=== PATIENT | female | born 1980 | race Caucasian/White ===

== ENCOUNTER 2020-02-25 14:41 | Outpatient (REF) | payer OTHER, SELFPAY ==
[2020-02-25 17:20] LABS: COVID-19 Test Negative (Negative)
== END 2020-02-25 14:42 | disposition home or self-care (01) ==
LOC: HO.LAB 14:41
PROVIDERS: PCP Internal Medicine; Visit Provider Internal Medicine
DX: Z20.828 Contact with and (suspected) exposure to other viral communicable diseases (principal)
CPT/HCPCS: 87635

== ENCOUNTER → 2020-03-09 11:04 | Outpatient (BNVA) | payer OTHER, SELFPAY | PROVIDERS: PCP Internal Medicine; Referring Provider Internal Medicine; Visit Provider Obstetrics & Gynecology | DX: Z76.89 Persons encountering health services in other specified circumstances (principal) ==

== ENCOUNTER → 2020-05-11 13:59 | Outpatient (BNVA) | payer OTHER, SELFPAY | PROVIDERS: PCP Internal Medicine; Visit Provider Urology | DX: Z76.89 Persons encountering health services in other specified circumstances (principal) ==

== ENCOUNTER 2020-05-24 15:35 | Outpatient (REF) | payer OTHER, SELFPAY | END 2020-05-24 15:36 | disposition home or self-care (01) | LOC: HO.LNP 15:35 | PROVIDERS: Visit Provider Obstetrics & Gynecology | DX: N90.89 Other specified noninflammatory disorders of vulva and perineum (principal) | CPT/HCPCS: 56605; 88305 ==

== ENCOUNTER 2020-05-31 08:12 | Outpatient (REF) | payer OTHER, SELFPAY ==
--- NOTE | 2020-05-31 08:16 | MM_ITS ---
EXAMINATION: MM SCREENING DIGITAL BREAST TOMOSYNTHESIS, BILATERAL CLINICAL INFORMATION: Screening. Asymptomatic. No prior breast imaging. Age 40. No known family history breast cancer. The lifetime risk of breast cancer based on the Tyrer-Cuzick Model is 9%. COMPARISON: None (current study represents initial baseline exam). TECHNIQUE: Digital breast tomosynthesis is performed in both the craniocaudal and mediolateral oblique views along with computer-aided detection (CAD). Synthesized 2D images are generated from the tomosynthesis. FINDINGS: There are scattered areas of fibroglandular density (ACR BI-RADS breast composition Category b). There are no significant masses, abnormal calcifications, or other abnormalities. The axilla and skin contours are unremarkable. MM/MM tomosynthesis screening BI IMPRESSION: No mammographic evidence of malignancy. ASSESSMENT: BI-RADS 1: Negative RECOMMENDATION: Routine annual mammography screening. This patient's information was entered into a reminder system with a target due date for their next mammogram.
== END 2020-05-31 08:13 | disposition home or self-care (01) ==
LOC: HO.MAMMO 08:12
PROVIDERS: PCP Internal Medicine; Visit Provider Obstetrics & Gynecology
DX: Z12.31 Encounter for screening mammogram for malignant neoplasm of breast (principal)
CPT/HCPCS: 77063; 77067

== ENCOUNTER → 2020-06-07 11:32 | Outpatient (BNVA) | payer OTHER, SELFPAY | PROVIDERS: Visit Provider Obstetrics & Gynecology ==

== ENCOUNTER → 2020-11-07 08:58 | Outpatient (BNVA) | payer OTHER, SELFPAY | PROVIDERS: PCP Internal Medicine; Visit Provider Urology | DX: N39.46 Mixed incontinence (principal) | CPT/HCPCS: 52000 ==

== ENCOUNTER 2021-01-05 10:51 | Outpatient (REF) | payer OTHER, SELFPAY ==
[2021-01-05 11:12] LABS: COVID-19 Test Negative (Negative)
== END 2021-01-05 10:52 | disposition home or self-care (01) ==
LOC: HO.LAB 10:51
PROVIDERS: Visit Provider Internal Medicine
DX: Z20.822 Contact with and (suspected) exposure to COVID-19 (principal)
CPT/HCPCS: 36415; 87635; C9803

== ENCOUNTER 2021-01-17 12:29 | Outpatient (REF) | payer OTHER, SELFPAY ==
[2021-01-17 13:20] LABS: COVID-19 Test Negative (Negative)
== END 2021-01-17 12:30 | disposition home or self-care (01) ==
LOC: HO.LAB 12:29
PROVIDERS: Visit Provider Internal Medicine
DX: Z20.822 Contact with and (suspected) exposure to COVID-19 (principal)
CPT/HCPCS: 36415; 87635; C9803

== ENCOUNTER 2021-04-06 11:00 | Outpatient (RCR) | payer OTHER, SELFPAY ==
--- NOTE | 2021-03-23 11:39 | MHC.PT.EP ---
[facility] [place] Office [place] Office [place] Office [address] Ely Colon [address] [phone] F: [phone] F: [phone] F: [phone] F: [phone] Physical Therapy Plan of Care Date of Evaluation: 03/23/2021 Date of Surgery: Diagnosis: mixed incontinence Assessment: The patient arrived with symptoms of urge and stress urinary incontinence. She demonstrated weakness, poor coordination, and poor endurance in her pelvic floor. She has been wearing an abdominal binder/shaper which I question may be contributing to incontinence due to increased intra abdominal pressure. The patient is an excellent candidate for skilled Pelvic floor Physical therapy. The patient will need behavior modification and education on diet and lifestyle changes to improve her current urinary function. Frequency and Duration: The patient will be seen 1x/week x 8 weeks Short Term Goals: 1. Pt to be able to demonstrate diaphragmatic breathing to improve pressure exchange and intra abdominal load management. 2. Pt to be educated on bladder irritants in order to decrease UI triggers 3. Pt to complete a voiding log in order to accurately assess her bladder habits 4. Pt to be educated on behavior training to help decrease urge incontinence. Detention Goals: 1. Pt to be able to show improved PFM contraction during functional movements such as a bridge or squat to help prevent or limit POP. 2. Pt to reduce # of episodes of SIERRA during the day by 50% to help improve quality of life and reduce pad usage. 3. Pt to be independent with her final HEP for PFM in order to help maintain gains made in therapy. Treatment Plan: Modalities to reduce pain, spasms and effusion. Manual therapy to restore motion and function. Therapeutic exercise to improve strength and flexibility. Neuromuscular re-education for posture and balance. Therapeutic activities to return to functional activities of daily living. Electronically signed by: Please sign and return to therapist. Thank you for your referral.
== END 2021-07-03 13:52 | disposition home or self-care (01) ==
LOC: HO.PT 11:00
PROVIDERS: PCP Student in an Organized Health Care Education/Training Program; Visit Provider Urology
DX: N39.46 Mixed incontinence (principal)
CPT/HCPCS: 97110; 97112; 97162; 97530

== ENCOUNTER → 2021-06-12 15:03 | Outpatient (BNVA) | payer OTHER, SELFPAY | PROVIDERS: PCP Internal Medicine; Visit Provider Urology ==

== ENCOUNTER 2021-07-11 08:56 | Outpatient (REF) | payer OTHER, SELFPAY ==
[2021-07-11 09:12] LABS: MANUAL DIFF FLAG NO
[2021-07-11 09:16] LABS: Basophils Percent Auto 0.7 % (0-2); Eosinophils Absolute Auto 0.1 X10*3/uL (0.0-0.4); Eosinophils Percent Auto 2.3 % (0-4); Hematocrit 39.7 % (37.0-47.0); Hemoglobin 13.5 g/dl (12.0-16.0); Lymphocytes Absolute Auto 1.3 X10*3/uL (1.2-4.9); Lymphocytes Percent Auto 43.8 % (20-40); Mean Corpuscular Hemoglobin 30.5 pg (27.0-33.0); Mean Corpuscular Volume 89.6 fL (80.0-98.0); Mean Platelet Volume 10.6 fL (9.4-12.3); Monocytes Absolute Auto 0.4 X10*3/uL (0.1-1.2); Monocytes Percent Auto 11.7 % (2-11); Neutrophils Absolute Auto 1.2 x10*3/uL (2.0-8.3); Neutrophils Percent Auto 41.5 % (45-73); Platelet Count 212 X10*3/uL (160-400); Red Blood Count 4.43 X10*6/uL (4.20-5.50); Red Cell Distribution Width 12.6 % (11.0-16.0)
[2021-07-11 10:01] LABS: Alanine Aminotransferase 16 U/L (0-31); Albumin Level 4.4 g/dL (3.5-5.0); Alkaline Phosphatase 48 U/L (39-117); Anion Gap 10 (12-20); Aspartate Amino Transferase 14 U/L (5-31); Blood Urea Nitrogen 11 mg/dL (9-16); Calcium 9.8 mg/dL (8.4-10.2); Carbon Dioxide 27 mmol/L (22-29); Chloride 106 mmol/L (96-108); Cholesterol 115 mg/dL; Estimated Glomerular Filt Rate > 60; Glucose Fasting 96 mg/dL (60-99); HDL Cholesterol 42 mg/dL; LDL Cholesterol Calculated 63 mg/dl; Potassium 4.2 mmol/L (3.3-5.1); Sodium 139 mmol/L (135-145); Total Protein 6.9 g/dL (6.5-8.0); Triglycerides 52 mg/dL
== END 2021-07-11 08:57 | disposition home or self-care (01) ==
LOC: HO.LAB 08:56
PROVIDERS: PCP Internal Medicine; Visit Provider Internal Medicine
DX: Z00.00 Encounter for general adult medical examination without abnormal findings (principal); D64.9 Anemia, unspecified; D72.819 Decreased white blood cell count, unspecified; E55.9 Vitamin D deficiency, unspecified
CPT/HCPCS: 36415; 80053; 80061; 82306; 85025

== ENCOUNTER → 2021-08-01 08:28 | Outpatient (BNVA) | payer OTHER, SELFPAY | PROVIDERS: PCP Internal Medicine; Visit Provider Internal Medicine Rheumatology | DX: Z13.89 Encounter for screening for other disorder (principal) ==

== ENCOUNTER 2021-08-08 08:34 | Outpatient (REF) | payer OTHER, SELFPAY ==
[2021-08-08 09:34] LABS: Erythrocyte Sedimentation Rate 2 MM/HR (0-20)
[2021-08-08 15:14] LABS: Creatinine Urine 144.17 mg/dL; Microalbum/Creatinine Ratio Ur 4.1 ug/mg cr
[2021-08-13 12:37] LABS: Anti DNA DS Antibody 5 IU/mL; SM/Ribonucleoprotein Ab <1.0 NEG AI (<1.0 NEG); Smith Protein <1.0 NEG AI (<1.0 NEG)
== END 2021-08-08 08:35 | disposition home or self-care (01) ==
LOC: HO.LAB 08:34
PROVIDERS: Visit Provider Internal Medicine Rheumatology
DX: R76.8 Other specified abnormal immunological findings in serum (principal)
CPT/HCPCS: 36415; 82043; 85652; 86225; 86235

== ENCOUNTER 2021-08-17 08:30 | Outpatient (REF) | payer OTHER, SELFPAY ==
--- NOTE | ~2021-08-17 | XR_ITS ---
EXAMINATION: XR SACROILIAC JOINTS CLINICAL INFORMATION: Low back pain. COMPARISON: Lumbar spine of 09/15/2019. TECHNIQUE: 3 views of the sacroiliac joints. FINDINGS: No significant sacral abnormality is identified. No significant abnormality of the sacroiliac joints noted. No narrowing of the SI joints and no effusion identified. There is noted to be right-sided facet arthropathy at the L5-S1 level. There is some spurring and subchondral cyst formation about the pubic symphysis. Hip joint spaces appear maintained. XR/XR sacroiliac joint 1-2V IMPRESSION: Right-sided facet arthropathy L5-S1. No significant sacroiliac joint abnormality appreciated.
== END 2021-08-17 08:31 | disposition home or self-care (01) ==
LOC: HO.XRAY 08:30
PROVIDERS: Visit Provider Internal Medicine Rheumatology
DX: M54.50 Low back pain, unspecified (principal)
CPT/HCPCS: 72200

== ENCOUNTER 2022-06-06 13:05 | Outpatient (REF) | payer OTHER, SELFPAY ==
--- NOTE | ~2022-06-06 | US_ITS ---
EXAMINATION: US RETROPERITONEAL LIMITED (RENAL ONLY) CLINICAL INFORMATION: Calculus of kidney. COMPARISON: Ultrasound retroperitoneal limited (renal only) 09/13/2019 and 05/31/2019. CT abdomen and pelvis without contrast 09/11/2017. TECHNIQUE: Real-time imaging of the kidneys. FINDINGS: RIGHT KIDNEY: 10.7 x 3.6 x 4.6 cm (SAG x AP x TRV). The kidney is normal in size, contour, and echogenicity. Renal cortical thickness is normal. No calculi or focal parenchymal lesions. No hydronephrosis. LEFT KIDNEY: 12.3 x 4.8 x 4.4 cm (SAG x AP x TRV). The kidney is normal in size, contour, and echogenicity. Renal cortical thickness is normal. No renal calculi or hydronephrosis. A tiny Bosniak class I, 5 mm cyst is noted in the midpole of the left kidney which needs no additional imaging or follow-up. No solid renal masses. US/US renal BI IMPRESSION: Negative exam. No renal calculi are seen.
== END 2022-06-06 13:06 | disposition home or self-care (01) ==
LOC: HO.US 13:05
PROVIDERS: Visit Provider Urology
DX: N20.0 Calculus of kidney (principal)
CPT/HCPCS: 76775

== ENCOUNTER 2022-06-19 09:43 | Outpatient (REF) | payer OTHER, SELFPAY ==
--- NOTE | ~2022-06-19 | CT_ITS ---
EXAMINATION: CT SINUS WITHOUT CONTRAST CLINICAL INFORMATION: Polypoid nasal cavity. COMPARISON: None. TECHNIQUE: CT paranasal sinuses with coronal and sagittal reconstruction. This CT examination was performed using dose optimization techniques as appropriate, variously including the following: *Automated exposure control *Adjustment of mA and/or kV according to patient size (this includes techniques or standardized protocols for targeted exams where dose is matched to indication/reason for exam; i.e. extremities or head) *Use of iterative reconstruction technique DLP: 97 mGy-cm. FINDINGS: There is mucosal thickening seen within the maxillary, frontal, and anterior ethmoid sinuses without air-fluid levels identified. Retained secretions are seen within the left maxillary sinus. The ostiomeatal complexes are obstructed with soft tissue density. There is bogginess of the inferior turbinates bilaterally. There is deviation of calcified nasal septum to the left. No bony destruction or expansion is appreciated. The pterygoid plates are intact. Temporomandibular joints appear unremarkable bilaterally. Visualized mastoid air cells unremarkable bilaterally. CT/CT sinus wo IV con IMPRESSION: Findings of chronic sinusitis as described above without destructive bony lesion. Occluded ostiomeatal complexes.
== END 2022-06-19 09:44 | disposition home or self-care (01) ==
LOC: HO.CT 09:43
PROVIDERS: PCP Internal Medicine; Visit Provider Otolaryngology
DX: J33.0 Polyp of nasal cavity (principal); J34.2 Deviated nasal septum
CPT/HCPCS: 70486

== ENCOUNTER 2022-07-31 10:00 | Outpatient (REF) | payer OTHER, SELFPAY ==
[2022-07-31 11:32] LABS: Alanine Aminotransferase 12 U/L (0-31); Albumin Level 4.3 g/dL (3.5-5.0); Alkaline Phosphatase 52 U/L (39-117); Anion Gap 11 (12-20); Aspartate Amino Transferase 12 U/L (5-31); Blood Urea Nitrogen 13 mg/dL (9-16); Calcium 9.6 mg/dL (8.4-10.2); Carbon Dioxide 26 mmol/L (22-29); Chloride 107 mmol/L (96-108); Cholesterol 155 mg/dL; Estimated Glomerular Filt Rate > 60; Glucose Fasting 94 mg/dL (60-99); HDL Cholesterol 43 mg/dL; LDL Cholesterol Calculated 101 mg/dl; Potassium 4.4 mmol/L (3.3-5.1); Sodium 140 mmol/L (135-145); Total Protein 6.8 g/dL (6.5-8.0); Triglycerides 55 mg/dL
[2022-07-31 11:53] LABS: Vitamin D 25-OH Total 51.3 ng/mL (>30)
[2022-07-31 12:46] LABS: MANUAL DIFF FLAG NO
[2022-07-31 12:49] LABS: Basophils Percent Auto 0.5 % (0-2); Eosinophils Absolute Auto 0.1 X10*3/uL (0.0-0.4); Eosinophils Percent Auto 2.7 % (0-4); Hematocrit 39.4 % (37.0-47.0); Hemoglobin 13.7 g/dl (12.0-16.0); Imm Gran Abs Auto 0.01 X10*3/uL (0.00-0.03); Imm Gran Pct Auto 0.3 % (0.0-0.4); Lymphocytes Absolute Auto 1.5 X10*3/uL (1.2-4.9); Lymphocytes Percent Auto 40.4 % (20-40); Mean Corpuscular HGB Conc 34.8 g/dl (31.0-35.0); Mean Corpuscular Hemoglobin 31.2 pg (27.0-33.0); Mean Corpuscular Volume 89.7 fL (80.0-98.0); Mean Platelet Volume 10.9 fL (9.4-12.3); Monocytes Absolute Auto 0.4 X10*3/uL (0.1-1.2); Monocytes Percent Auto 10.5 % (2-11); Neutrophils Absolute Auto 1.7 x10*3/uL (2.0-8.3); Neutrophils Percent Auto 45.6 % (45-73); Platelet Count 234 X10*3/uL (160-400); Red Blood Count 4.39 X10*6/uL (4.20-5.50); Red Cell Distribution Width 12.4 % (11.0-16.0); White Blood Count 3.7 X10*3/uL (4.8-10.8)
== END 2022-07-31 10:01 | disposition home or self-care (01) ==
LOC: HO.LAB 10:00
PROVIDERS: Visit Provider Internal Medicine
DX: Z00.00 Encounter for general adult medical examination without abnormal findings (principal); E55.9 Vitamin D deficiency, unspecified; D64.9 Anemia, unspecified
CPT/HCPCS: 36415; 80053; 80061; 82306; 85025

== ENCOUNTER 2022-09-19 10:47 | Outpatient (REF) | payer OTHER, SELFPAY ==
--- NOTE | ~2022-09-19 | MM_ITS ---
EXAMINATION: MM SCREENING DIGITAL BREAST TOMOSYNTHESIS, BILATERAL CLINICAL INFORMATION: Screening. Asymptomatic. The lifetime risk of breast cancer based on the Tyrer-Cuzick Model is 7.9%. COMPARISON: Mammography: May 31, 2020 TECHNIQUE: Digital breast tomosynthesis is performed in both the craniocaudal and mediolateral oblique views along with computer-aided detection (CAD). Synthesized 2D images are generated from the tomosynthesis. FINDINGS: The breasts are heterogeneously dense, which may obscure small masses (ACR BI-RADS breast composition Category c). There are no significant masses, abnormal calcifications, or other abnormalities. MM/MM tomosynthesis screening BI IMPRESSION: No significant changes ASSESSMENT: BI-RADS 1: Negative RECOMMENDATION: Routine annual mammography screening. This patient's information was entered into a reminder system with a target due date for their next mammogram.
== END 2022-09-19 10:48 | disposition home or self-care (01) ==
LOC: HO.MAMMO 10:47
PROVIDERS: Visit Provider Internal Medicine
DX: Z12.31 Encounter for screening mammogram for malignant neoplasm of breast (principal)
CPT/HCPCS: 77063; 77067

== ENCOUNTER 2023-03-11 09:33 | Outpatient (REF) | payer OTHER, SELFPAY ==
[2023-03-11 10:58] LABS: Vitamin D 25-OH Total 35.8 ng/mL (>30)
== END 2023-03-11 09:34 | disposition home or self-care (01) ==
LOC: HO.LAB 09:33
PROVIDERS: Visit Provider Internal Medicine
DX: E55.9 Vitamin D deficiency, unspecified (principal)
CPT/HCPCS: 36415; 82306

== ENCOUNTER 2023-05-20 11:24 | Outpatient (REF) | payer OTHER, SELFPAY ==
--- NOTE | ~2023-05-20 | US_ITS ---
EXAMINATION: US PELVIS COMPLETE TRANSVAGINAL PELVIC ULTRASOUND: CLINICAL INFORMATION: Pelvic and perineal pain. COMPARISON: None TECHNIQUE: Transabdominal imaging initially performed. For more definitive evaluation of the right ovary, transvaginal technique was employed. FINDINGS: Uterus is surgically absent. Adjacent to the right vaginal cuff, 1.2 x 1.3 x 0.9 cm hypoechoic avascular mass is seen. Right ovary measures 5.3 x 3.0 x 3.2 cm for a volume of 27.0 mL. Normal ovarian flow demonstrated. Multiple cysts are seen, largest measures 2.6 x 1.5 x 2.3 cm. The left ovary has been surgically removed. There is no pelvic free fluid. US/US pelvic and transvaginal IMPRESSION: 1.3 cm hypoechoic lesion adjacent to the right vaginal cuff, possible endometrioma in patient with severe endometriosis history necessitating hysterectomy and left oophorectomy. Consider short-term sonographic follow-up versus MRI. Right ovarian cysts.
== END 2023-05-20 11:25 | disposition home or self-care (01) ==
LOC: HO.US 11:24
PROVIDERS: PCP Internal Medicine; Visit Provider Obstetrics & Gynecology
DX: R10.2 Pelvic and perineal pain (principal)
CPT/HCPCS: 76830; 76856

== ENCOUNTER 2023-05-29 07:33 | Outpatient (AMB) | payer OTHER, SELFPAY ==
--- NOTE | 2023-05-29 07:34 | MHC.OFFVIS ---
Intake Vital Signs 05/29/23 07:37 Height 5 ft 7 in BP 100/60 Intake Visit Reasons: US follow up [place] [employer] Operator Required: No Information Interpreted: non-clinical & clinical Accompanied by: Self / Same As Patient Allergies pollen Allergy (Intermediate, Uncoded 05/29/23 07:38) upper respiratory issues Is last menstrual period known: No (hysterectomy) HPI HPI Comments History of Present Illness Details Presenting for ultrasound follow-up that was done recently and showed the following: Uterus is surgically absent. Adjacent to the right vaginal cuff, 1.2 x 1.3 x 0.9 cm hypoechoic avascular mass is seen. Right ovary measures 5.3 x 3.0 x 3.2 cm for a volume of 27.0 mL. Normal ovarian flow demonstrated. Multiple cysts are seen, largest measures 2.6 x 1.5 x 2.3 cm. The left ovary has been surgically removed. There is no pelvic free fluid The patient has a history of endometriosis status post total abdominal hysterectomy with left salpingo-oophorectomy at [facility] 5 years ago for endometriosis, according to patient history of extensive adhesion and endometriosis. The pain is on the right side on and off no other associated GI or symptoms [facility] Medical History Low back pain Ganglion cyst NATALIO positive Hip osteoarthritis Leukopenia Hypovitaminosis D Physical exam Renal calculi Vertigo Ovarian cyst Endometriosis Migraine headache Surgical History History of hysterectomy Family History Mother Diabetes mellitus Father Essential hypertension Renal cancer Family/Other Mental health disorder Substance use disorder Social History Household Members: Spouse and Children Housing: House Are you a primary landcare facilitator to a significant other at home: No Do you presently have visiting nurse or other home services: No Alcohol intake: current Alcohol intake frequency: holidays/special occasions only Patient Tobacco Use Status: Never used Tobacco e-Cigarette/Vaping Use: Never Used Second Hand Smoke Exposure: No Substance Use Type: Marijuana service: No Current occupational status: employed Current occupational exposures/hazards: No Sexual orientation: Straight/Heterosexual Gender identity: Female Cognitive needs: No Hearing needs: No Vision needs: Yes Female Reproductive History Menstrual Age of Menarche: 10 Review of Systems Const All systems reviewed & are unremarkable except as noted in HPI and below Card Reports as per HPI and Reports no additional complaints Resp Reports as per HPI and Reports no additional complaints GI Reports as per HPI and Reports no additional complaints Reports as per HPI Physical Exam Const General: cooperative, healthy appearing and comfortable General: Yes bladder normal to palpation External Female Exam: No lesion Speculum Exam - Vagina: normal appearance of the vagina, normal vaginal discharge and not erythematous Speculum Exam - Cervix: Cervix absent and Other cervical findings present Bimanual exam- vagina & uterus: bladder normal to palpation, uterus absent and other (No vaginal cuff abnormality) Bimanual Exam- Adnexa, other: Other (No masses detected) Assessment & Plan Assessment & Plan (1) Pelvic pain: Comment: Vaginal cuff mass by ultrasound History of endometriosis status post LEI RSO with extensive adhesions Code(s): R10.2 - Pelvic and perineal pain Plan: Discussed with the patient the finding on pelvic ultrasound, vaginal cuff mass, will order MRI, request the medical release for the operative report and pathology of the patient's hysterectomy that was done 5 years ago at [facility]. Instructions given the patient to schedule a 2 week follow-up appointment. All questions answered, the patient verbalized understanding Orders: Orders MR pelvis wo/w con Today R10.2 - Pelvic and perineal pain Coding Level of Care Code Est Pt Level 3 (43306) Diagnoses Pelvic pain R10.2
[2023-05-29 07:37] VITALS: BP 100/60
== END 2023-05-29 08:01 | disposition home or self-care (01) ==
PROVIDERS: PCP Internal Medicine; Visit Provider Obstetrics & Gynecology
DX: R10.2 Pelvic and perineal pain (principal)
CPT/HCPCS: 99213

== ENCOUNTER → 2023-05-29 07:33 | Outpatient (BNVA) | payer OTHER, SELFPAY | PROVIDERS: PCP Internal Medicine; Visit Provider Obstetrics & Gynecology ==

== ENCOUNTER 2023-06-11 16:40 | Outpatient (REF) | payer OTHER, SELFPAY ==
--- NOTE | ~2023-06-11 | MR_ITS ---
EXAMINATION: MRI PELVIS WITH AND WITHOUT CONTRAST CLINICAL INFORMATION: Reason for Exam R10.2 - Pelvic and perineal pain COMPARISON: Pelvic ultrasound 05/19/2023 TECHNIQUE: Multiple routine MRI sequences through the pelvis were obtained on a high-field 1.5 Elaine MRI before and after the uneventful administration of 7 mL of Gadavist gadolinium-based IV contrast. FINDINGS: UTERUS: Surgically absent. CERVIX: Surgically absent. VAGINA: Unremarkable. RIGHT OVARY: Right ovary measures 3.8 x 2.7 x 4.8 cm. There are multiple follicles with the largest measuring 2.2 x 2.1 x 2.0 cm and 1.6 x 1.8 x 1.8 cm. No abnormal enhancement. LEFT OVARY: Not visualized. KIDNEYS: Two normally positioned kidneys are seen. No hydronephrosis. BLADDER: Unremarkable. PELVIC FREE FLUID: No free fluid or ascites. LYMPH NODES: No bulky pelvic lymphadenopathy. OTHER: Cystic lesion anterior to the right hemisacrum measures 2.4 x 1.4 x 2.2 cm. No internal septations or mural nodules. No postcontrast enhancement. This may represent a perineural cyst. This was present CT abdomen/pelvis performed on 09/11/2017. MR/MR pelvis wo/w con IMPRESSION: No focal abnormality in the region of the right vaginal cuff to correspond to recent sonographic imaging.
[2023-06-11] MEDS: gadobutroL 7.5 ML VIAL IVPUSH (17:41)
== END 2023-06-11 16:41 | disposition home or self-care (01) ==
LOC: HO.MRI 16:40
PROVIDERS: PCP Internal Medicine; Visit Provider Obstetrics & Gynecology
DX: R10.2 Pelvic and perineal pain (principal)
CPT/HCPCS: 72197; A9585

== ENCOUNTER 2023-07-15 09:45 | Outpatient (AMB) | payer OTHER, SELFPAY ==
--- NOTE | 2023-07-15 09:51 | A.OFFVIS_ITS ---
Intake Vital Signs 07/15/23 09:54 Height 5 ft 7 in Weight 156 lb 8.451 oz BMI 24.5 BP 116/70 Intake Visit Reasons: MRI follow up Allergies pollen Allergy (Intermediate, Uncoded 05/29/23 07:38) upper respiratory issues HPI HPI Comments History of Present Illness Details The patient is presenting for follow-up LV MRI the results of abnormal ultrasound was done on 05/17/23 which showed the following: IMPRESSION: 1.3 cm hypoechoic lesion adjacent to the right vaginal cuff, possible endometrioma in patient with severe endometriosis history necessitating hysterectomy and left oophorectomy. Consider short-term sonographic follow-up versus MRI. Right ovarian cysts Pelvic MRI done on 06/11/2023 showed the following: UTERUS: Surgically absent. CERVIX: Surgically absent. VAGINA: Unremarkable. RIGHT OVARY: Right ovary measures 3.8 x 2.7 x 4.8 cm. There are multiple follicles with the largest measuring 2.2 x 2.1 x 2.0 cm and 1.6 x 1.8 x 1.8 cm. No abnormal enhancem ent. LEFT OVARY: Not visualized. KIDNEYS: Two normally positioned kidneys are seen. No hydronephrosis. BLADDER: Unremarkable. PELVIC FREE FLUID: No free fluid or ascites. LYMPH NODES: No bulky pelvic lymphadenopathy. OTHER: Cystic lesion anterior to the right hemisacrum measures 2.4 x 1.4 x 2.2 cm. No internal septations or mural nodules. No postcontrast enhancement. This may represent a perineural cyst. This was present CT abdomen/pelvis performed on 09/11/2017. [facility] Medical History Low back pain Ganglion cyst NATALIO positive Hip osteoarthritis Leukopenia Hypovitaminosis D Physical exam Renal calculi Vertigo Ovarian cyst Endometriosis Migraine headache Surgical History History of hysterectomy Family History Mother Diabetes mellitus Father Essential hypertension Renal cancer Family/Other Mental health disorder Substance use disorder Social History Household Members: Spouse and Children Housing: House Are you a primary resident care manager rn to a significant other at home: No Do you presently have visiting nurse or other home services: No Alcohol intake: current Alcohol intake frequency: holidays/special occasions only Patient Tobacco Use Status: Never used Tobacco e-Cigarette/Vaping Use: Never Used Second Hand Smoke Exposure: No Substance Use Type: Marijuana service: No Current occupational status: employed Current occupational exposures/hazards: No Sexual orientation: Straight/Heterosexual Gender identity: Female Cognitive needs: No Hearing needs: No Vision needs: Yes Female Reproductive History Menstrual Age of Menarche: 10 Review of Systems Const All systems reviewed & are unremarkable except as noted in HPI and below Reports as per HPI and Reports no additional complaints GI Reports no additional complaints Reports no additional complaints Physical Exam Vital Signs: Last Vital Signs BP 116/70 07/15/23 09:54 Assessment & Plan Assessment & Plan (1) Pelvic pain: Comment: History of endometriosis status post LEI RSO with extensive adhesions Pelvic cyst in the Hemisacrum Code(s): R10.2 - Pelvic and perineal pain Plan: Discussed with the patient the finding on pelvic MRI ruling out vaginal cuff endometrioma that was seen on pelvic ultrasound, identified a cystic lesion anterior to the right hemisacrum measures 2.4 x1.4 x 2.2 cm. No internal septations or mural nodules. No postcontrast enhancement. This may represent a perineural cyst. This was present CT abdomen/pelvis performed on 09/11/2017. The patient was asked to call her to PCP for further management All questions answered, the patient verbalized understanding Coding Level of Care Code Est Pt Level 3 (25889) Diagnoses Pelvic pain R10.2
[2023-07-15 09:54] VITALS: BP 116/70; BMI 24.5
== END 2023-07-15 11:50 | disposition home or self-care (01) ==
LOC: HO.HWS 09:46
PROVIDERS: PCP Internal Medicine; Visit Provider Obstetrics & Gynecology
DX: R10.2 Pelvic and perineal pain (principal)
CPT/HCPCS: 99213

== ENCOUNTER → 2023-07-15 09:45 | Outpatient (BNVA) | payer OTHER, SELFPAY | PROVIDERS: PCP Internal Medicine; Visit Provider Obstetrics & Gynecology ==

== ENCOUNTER 2023-08-05 08:33 | Outpatient (AMB) | payer OTHER, SELFPAY ==
--- NOTE | 2023-08-05 08:35 | A.OFFPC_ITS ---
Vital Signs 08/05/23 08:36 Height 5 ft 7 in Weight 155 lb BMI 24.3 BP 120/70 Blood Pressure Location Lt brachial Position Sitting Intake Visit Reasons: Annual Exam Intake Note: Patient here for a physical exam Air Pumper Required: No Accompanied by: Self / Same As Patient Allergies pollen Allergy (Intermediate, Uncoded 08/05/23 08:44) upper respiratory issues Medication List - Last Reconciled 08/05/23 by Dee Dee Chaidez MD cholecalciferol (vitamin D3) 25 mcg PO DAILY 90 days melatonin 5 mg PO DAILY PRN multivitamin 1 tab PO BID naproxen sodium (Aleve) 440 mg PO BID PRN Tobacco use date assessed: 08/05/23 Dental Screening Dental Screen Date: 08/05/23 Did you have a dental visit in the last 12 months?: Yes Did you have a dental problem in the last 6 months where you did not have access to dental care?: No Was dental information given to patient?: Patient has dentist HPI HPI Comments History of Present Illness Details This is a 43-year-old female that comes for her physical exam. Mammogram done 2022. No need for Pap smear due to hysterectomy. Complains of low back pain that radiates to both legs that happens once a month. 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 I will order MRI of the sacrum. No fever, bowel or bladder incontinence. No leg numbness. Has pelvic floor weakness and has received physical therapy in the past with minimal relief. Also has dry eyes and a positive DEE DEE with low white blood cells that will be repeated. Denies any chest pain or shortness of breath. Also complains of bilateral upper quadrant pain that happens occasionally. [facility] Medical History (Updated 08/05/23 @ 09:05 by Dee Dee Chaidez MD) Low back pain Ganglion cyst DEE DEE positive Hip osteoarthritis Leukopenia Hypovitaminosis D Physical exam Renal calculi Vertigo Ovarian cyst Endometriosis Migraine headache Surgical History History of hysterectomy Family History Mother Diabetes mellitus Father Essential hypertension Renal cancer Family/Other Mental health disorder Substance use disorder Social History Household Members: Spouse and Children Housing: House Are you a primary geriatric personal care aide to a significant other at home: No Do you presently have visiting nurse or other home services: No Alcohol intake: current Alcohol intake frequency: holidays/special occasions only Patient Tobacco Use Status: Never used Tobacco e-Cigarette/Vaping Use: Never Used Second Hand Smoke Exposure: No Substance Use Type: Marijuana service: No Current occupational status: employed Current occupational exposures/hazards: No Sexual orientation: Straight/Heterosexual Gender identity: Female Cognitive needs: No Hearing needs: No Vision needs: Yes Female Reproductive History Menstrual Age of Menarche: 10 Questionnaire PHQ-9 Over the last 2 weeks, how often have you been bothered by any of the following problems? 1. Little interest or pleasure in doing things: not at all 2. Feeling down, depressed, or hopeless: not at all 3. Trouble falling or staying asleep, or sleeping too much: not at all 4. Feeling tired or having little energy: not at all 5. Poor appetite or overeating: not at all 6. Feeling bad about yourself - or that you are a failure or have let yourself or your family down: not at all 7. Trouble concentrating on things, such as reading the newspaper or watching television: not at all 8. Moving or speaking so slowly that other people could have noticed. Or the opposite - being so fidgety or restless that you have been moving around a lot more than usual: not at all 9. Thoughts that you would be better off or of hurting yourself in some way: not at all Total score: 0 Depression Screening Interpretation: Negative Depression Screening Done: Yes 66824 - PHQ-9 Billing: Yes Source: Developed by Drs. Jim Trevino, Cheryl Patel, Jarod Galicia and colleagues, with an educational jossie from [employer]. Thrive Questionnaire Date Thrive assessed: 08/05/23 I am a: Patient What is your living situation today?: I have a steady place to live Within the past 12 months, did the food you bought not last and you didn't have the money to get more?: Never true Within the past 12 months, did you worry whether your food would run out before you got money to buy more?: Never true Do you have trouble paying for medicines?: No Do you have trouble getting transportation to medical appointments?: No Do you have trouble paying your heating and electricity bill?: No Do you have trouble taking care of your child, family member or friend?: No Do you have trouble with day-to-day activities such as bathing, preparing meals, shopping, managing finances, etc.?: No Are you currently unemployed and looking for a job?: No Are you interested in more education?: No Please select the resources that you would like help with: None Currently or been in a relationship where the following occur: no concerns reported THRIVE Score: 0 AUDIT C Alcohol Use Questionnaire (AUDIT-C) 1. How often do you have a drink containing alcohol?: Monthly or less 2. How many drinks containing alcohol do you have on a typical day when you are drinking?: 1 or 2 3. How often do you have six or more drinks on one occasion?: Never Total Score: 1 Score Reviewed/Action Taken: No TREY-7 AMB Questionnaire TREY-7 Date TREY - 7 assessed: 08/05/23 Feeling nervous, anxious, or on edge: 1 = Several days Not being able to stop or control worryin = Not at all Worrying too much about different things: 0 = Not at all Trouble relaxin = Not at all Being so restless that it is hard to sit still: 0 = Not at all Becoming easily annoyed or irritable: 0 = Not at all Feeling afraid as if something awful might happen: 0 = Not at all Total TREY-7 score (0-4 normal; 5-9 mild; 10-14 moderate; 15-21 severe): 1 Source: Developed by Drs. Jim Trevino, Cheryl Patel, Jarod Galicia and colleagues, with an educational jossie from [employer]. TREY-7 Assessment Billing TREY-7 Assessment Tool: TREY-7 Assessment 51597 Review of Systems Const All systems reviewed & are unremarkable except as noted in HPI and below Eyes Reports no additional complaints, Denies change in vision and Denies other visual disturbances Card Denies chest pain at rest, Denies chest pain with activity, Denies edema, Denies irregular heart rhythm, Denies claudication, Denies dyspnea, Denies dyspnea on exertion, Denies orthopnea, Denies paroxysmal nocturnal dyspnea and Denies slow heart rate Resp Denies cough, Denies dyspnea and Denies dyspnea on exertion GI Denies abdominal pain, Denies change in bowel habits, Denies excessive flatus, Denies nausea and Denies vomiting Denies urinary incontinence, Denies urinary hesitancy and Denies urinary urgency Musc Reports back pain Physical exam (Primary Care) Vital Signs: Last Vital Signs BP 120/70 08/05/23 08:36 BMI result Body Mass Index 24.3 Tobacco/Smoking Status: Tobacco use Status Tobacco use date assessed 08/05/23 08/05/23 08:41 Patient Tobacco Use Status Never used Tobacco 08/05/23 08:41 e-Cigarette/Vaping Use Never Used 08/05/23 08:41 PHQ-9: PHQ-9 Score PHQ-9: Total score 0 08/05/23 08:41 Depression Screening Interpretation: Negative Thrive Assessment: Date of Thrive Assessment Date Thrive assessed 08/05/23 08/05/23 08:41 Currently or been in a relationship where the following occur: no concerns reported Const Orientation/consciousness: patient oriented x3 [facility] Head: Yes normal to inspection, Yes normocephalic and Yes atraumatic Ears: external ears normal Eyes General: appearance normal, both eyes and all related structures Eyelids: Yes eyelids normal Conjunctivae: conjunctivae normal Neck Neck: Yes normal visual inspection and Yes supple Resp Effort & Inspection: normal respiratory effort Auscultation: clear to auscultation bilaterally Cardio Jugular venous distension: no JVD Rate: regular rate Rhythm: regular rhythm Heart sounds: S1 normal heart sound present and S2 normal heart sound present GI Inspection: Yes normal to inspection Palpation (GI): Soft to palpation and nontender Auscultation: normal bowel sounds Skin General skin exam: no rashes or lesions noted Neuro General: patient oriented x3 and no focal motor deficits Extrem General: Yes full ROM Psych Appearance: grossly normal Assessment and Plan Assessment & Plan (1) Physical exam: Code(s): Z00.00 - Encounter for general adult medical examination without abnormal findings Plan: Repeat in a year. Orders: Orders Vitamin D 25-OH Total Today E55.9 - Vitamin D deficiency, unspecified Complete Blood Count Auto Diff Today D72.819 - Decreased white blood cell count, unspecified, R76.8 - Other specified abnormal immunological findings in serum DEE DEE Reflex Titer and Pattern Today R76.8 - Other specified abnormal immunological findings in serum Anti DNA DS Antibody Today R76.8 - Other specified abnormal immunological findings in serum Erythrocyte Sedimentation Rate Today R76.8 - Other specified abnormal immunological findings in serum Comprehensive [place]. Panel Fast Today Z00.00 - Encounter for general adult medical examination without abnormal findings Lipid Panel Today Z00.00 - Encounter for general adult medical examination without abnormal findings Sjogren's Antibodies Today R76.8 - Other specified abnormal immunological findings in serum Rheumatoid Factor Today R76.8 - Other specified abnormal immunological findings in serum Cyclic Citrullinated Peptide Today R76.8 - Other specified abnormal immunological findings in serum CRP High Sensitivity Today R76.8 - Other specified abnormal immunological findings in serum MR sacrum wo/w con Today G96.191 - Perineural cyst Coding Level of Care Code Est Pt Prev Care 40-64y(69689) Diagnoses Physical exam Z00.00 Additional Codes TREY-7 Assessment Billing - TREY-7 Assessment Tool: TREY-7 Assessment 61925 ([id number]) Time Spent (min) 34
[2023-08-05 08:36] VITALS: BP 120/70; BMI 24.3
== END 2023-08-05 09:08 | disposition home or self-care (01) ==
PROVIDERS: Visit Provider Internal Medicine
DX: Z00.00 Encounter for general adult medical examination without abnormal findings (principal)
CPT/HCPCS: 99396

== ENCOUNTER 2023-08-11 13:59 | Outpatient (AMB) | payer OTHER, SELFPAY ==
--- NOTE | 2023-08-11 15:06 | A.SPINEOV_ITS ---
Intake Intake Visit Reasons: Tarlov cyst. Intake Note: Ms. Julien is here today c/o low back pain that radiates to both legs. 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 She is a ve ry nice 43-year-old female who has battled with episodic periods of back pain and bilateral anterior thigh pain during her menses. She has had a history of endometriosis and it was always felt that this would be the source of the pain and discomfort. She underwent a hysterectomy and a left oophorectomy in hopes that this would help the pain and discomfort. There was a brief period of time after surgery where it did seem to help, but the symptoms have returned. Now, despite the fact that she does not have menses she is still continuing to have episodic discomfort. Even though she does not have any active typical menses, she does have hormonal surges related to the 1 residual ovary that she still has and feels it may be connected with these at times but not necessarily. It is not activity related in the sense that there is no mechanical back pain when she is lifting something or bending etc.. The pain does not occur when she is walking. When she does have these events or flare-up, they do feel present all day throughout the day despite her mobility or positioning. If she takes leave it helped significantly. She comes in today for evaluation. She was found to have what appears to be a cystic mass in the right side of the presacral area measuring 2.4 x 1.4 x 2.2 cm. , suspicious for possible Tarlov or perineural cyst. 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 There is no postcontrast imaging to review with this. It was seen on a previous CT done in 2018 it appears similar in size. Impression: 43-year-old female presents with intermittent episodic back pain and anterior thigh pain going on now for many years, thought to be connected to her endometriosis. She had a hysterectomy and left oophorectomy and although she had a brief period of improvement in the symptoms after the surgery the symptoms have continued. Although she does not have normal menses, she does get episodic hormonal changes related to the ovary that she still has and will feel from time to time that the symptoms flare up again. She is somewhat frustrated by this because it times it can be incapacitating. She takes leave in that seems to help. She did imaging for evaluation postsurgically and was found to incidentally have a cyst in the right gonzalo sacrum as outlined above. It appears about similar size to what it was 2018. It does have some features of a Tarlov cyst in that it is bright on T2. I do not see any significant scalloping of the bone. It is well-known that these can be asymptomatic incidental findings and do not represent pathology themselves. I do not think it explains the patient's current set of symptoms because it is only on the right side and the patient has bilateral pain. Also, it appears to be coming off the right L5 nerve root and if this were causing active nerve root irritation the dermatomal distribution would be unilateral pain going down into her buttock, calf and foot and not into her anterior thighs. That being said, I think it is worth looking into her lumbar spine with a little more detail. It is possible she has some nerve compression in the upper lumbar region which would explain anterior thigh pain. The pelvic MRI does not include these areas. Also we can do postcontrast imaging to see if there is any enhancement of the cystic area in question. Thank you for allowing us to care for your patient. The total time spent with this visit with this patient was 45 minutes reviewing history, physical exam, MRI of the pelvis imaging review, and implementation of treatment plan or further diagnostic testing Brian Suresh MD,PhD [facility] Orders: Orders MR lumbar spine wo/w con Today M53.3 - Sacrococcygeal disorders, not elsewhere classified Coding Level of Care Code New Pt Level 4 (13541) Diagnoses Sacral pain M53.3
== END 2023-08-11 15:53 | disposition home or self-care (01) ==
PROVIDERS: PCP Internal Medicine; Referring Provider Internal Medicine; Visit Provider Physician Assistant
DX: M53.3 Sacrococcygeal disorders, not elsewhere classified (principal)
CPT/HCPCS: 99204

== ENCOUNTER → 2023-08-11 13:59 | Outpatient (BNVA) | payer OTHER, SELFPAY | PROVIDERS: PCP Internal Medicine; Visit Provider Physician Assistant ==

== ENCOUNTER 2023-08-12 12:48 | Outpatient (REF) | payer OTHER, SELFPAY ==
--- NOTE | ~2023-08-12 | MR_ITS ---
EXAMINATION: MR LUMBAR SPINE WITHOUT AND WITH CONTRAST CLINICAL INFORMATION: Sacrococcygeal disorder, previous right-sided sacral mass COMPARISON: MRI pelvis 06/11/2023 TECHNIQUE: MRI of the lumbar spine was obtained using routine sequences before and after intravenous administration of 7 mL Gadavist. FINDINGS: Stable appearance of a nonenhancing unilocular cystic structure measuring 2.3 x 1.7 cm within the right presacral soft tissues along the course of and compressing the extraforaminal right L5 nerve root. No solid nodular or masslike enhancement. Findings are most suggestive of a benign entity, such as a perineural root sleeve cyst. Minimal lumbar levocurvature. Preserved lumbar lordosis. Vertebral body heights are maintained. There is no suspicious enhancing osseous lesion. There is disc desiccation from L3 L5 through L5-S1 with mild disc height loss at L3-L4. Level by level detail as follows: L1-L2: No spinal canal or neural foraminal stenosis. L2-L3: No spinal canal or neural foraminal stenosis. L3-L4: Annular disc bulge. Enhancing ventral annular fissuring. No spinal canal or neural foraminal stenosis. L4-L5: Annular disc bulge with paracentral disc protrusion and enhancing left foraminal annular fissure. Mild bilateral facet arthrosis. No spinal canal stenosis. Abutment along the traversing L5 nerve roots in the subarticular zones. Patent neural foramina. L5-S1: Annular disc bulge with broad-based left subarticular disc protrusion with enhancing annular fissure. Mild to moderate right and mild left facet arthrosis. No spinal canal or neural foraminal stenosis. The conus medullaris terminates at the level of L1-L2. The distal spinal cord and cauda equina nerve roots appear normal. No pathologic intrathecal enhancement. No epidural fluid collection, hematoma, or mass. No significant abnormalities of the paraspinal musculature. Limited evaluation of the intra-abdominal structures without significant abnormalities. The abdominal aorta is of normal contour and caliber. MR/MR lumbar spine wo/w con IMPRESSION: 1. Stable appearance of a nonenhancing unilocular cystic structure measuring 2.3 x 1.7 cm within the right presacral soft tissues along the course of and compressing the extraforaminal right L5 nerve root. No solid nodular or masslike enhancement. Findings are most suggestive of a benign entity, such as a perineural root sleeve cyst. 2. Multilevel annular fissuring. No spinal canal or neural foraminal stenosis at any level.
[2023-08-12] MEDS: gadobutroL 7.5 ML VIAL IVPUSH (13:44)
== END 2023-08-12 12:49 | disposition home or self-care (01) ==
LOC: HO.MRI 12:48
PROVIDERS: PCP Internal Medicine; Visit Provider Physician Assistant
DX: M53.3 Sacrococcygeal disorders, not elsewhere classified (principal)
CPT/HCPCS: 72158; A9585

== ENCOUNTER 2023-08-15 08:12 | Outpatient (REF) | payer OTHER, SELFPAY ==
[2023-08-15 08:37] LABS: MANUAL DIFF FLAG NO
[2023-08-15 08:43] LABS: Basophils Percent Auto 0.8 % (0-2); Eosinophils Absolute Auto 0.1 X10*3/uL (0.0-0.4); Eosinophils Percent Auto 3.2 % (0-4); Hematocrit 40.2 % (37.0-47.0); Hemoglobin 14.3 g/dl (12.0-16.0); Imm Gran Abs Auto 0.01 X10*3/uL (0.00-0.03); Imm Gran Pct Auto 0.3 % (0.0-0.4); Lymphocytes Absolute Auto 1.4 X10*3/uL (1.2-4.9); Lymphocytes Percent Auto 37.5 % (20-40); Mean Corpuscular HGB Conc 35.6 g/dl (31.0-35.0); Mean Corpuscular Hemoglobin 30.6 pg (27.0-33.0); Mean Corpuscular Volume 86.1 fL (80.0-98.0); Mean Platelet Volume 9.9 fL (9.4-12.3); Monocytes Absolute Auto 0.4 X10*3/uL (0.1-1.2); Monocytes Percent Auto 9.4 % (2-11); Neutrophils Absolute Auto 1.8 x10*3/uL (2.0-8.3); Neutrophils Percent Auto 48.8 % (45-73); Platelet Count 231 X10*3/uL (160-400); Red Blood Count 4.67 X10*6/uL (4.20-5.50); Red Cell Distribution Width 12.6 % (11.0-16.0); White Blood Count 3.7 X10*3/uL (4.8-10.8)
[2023-08-15 09:28] LABS: Erythrocyte Sedimentation Rate 3 MM/HR (0-20)
[2023-08-15 09:31] LABS: Rheumatoid Factor < 13.0 IU/mL (<15.0)
[2023-08-15 09:34] LABS: Alanine Aminotransferase 16 U/L (0-31); Albumin Level 4.3 g/dL (3.5-5.0); Alkaline Phosphatase 57 U/L (39-117); Aspartate Amino Transferase 13 U/L (5-31); Bilirubin Total 0.9 mg/dL (0.0-1.0); Blood Urea Nitrogen 15 mg/dL (9-16); Calcium 9.2 mg/dL (8.4-10.2); Carbon Dioxide 24 mmol/L (22-29); Chloride 109 mmol/L (96-108); Cholesterol 170 mg/dL (<200); Estimated Glomerular Filt Rate > 60; Glucose Fasting 114 mg/dL (60-99); HDL Cholesterol 46 mg/dL (>40); LDL Cholesterol Calculated 111 mg/dL (<100); Potassium 3.8 mmol/L (3.3-5.1); Sodium 140 mmol/L (135-145); Total Protein 7.1 g/dL (6.5-8.0); Triglycerides 68 mg/dL (<150)
[2023-08-15 11:28] LABS: Anion Gap 11 (12-20)
[2023-08-15 11:40] LABS: Vitamin D 25-OH Total 40.5 ng/mL (>30)
[2023-08-17 21:39] LABS: CRP High Sensitivity 0.6 mg/L
[2023-08-18 11:43] LABS: Anti Nuclear Antibody Screen POSITIVE (NEGATIVE)
[2023-08-18 14:39] LABS: Cyclic Citrullinated Peptide <16 UNITS
[2023-08-18 21:47] LABS: Anti DNA DS Antibody 5 IU/mL; Antibody to SS-A Antigen <1.0 NEG AI (<1.0 NEG); Antibody to SS-B Antigen <1.0 NEG AI (<1.0 NEG)
== END 2023-08-15 08:13 | disposition home or self-care (01) ==
LOC: HO.LAB 08:12
PROVIDERS: PCP Internal Medicine; Visit Provider Internal Medicine
DX: Z00.00 Encounter for general adult medical examination without abnormal findings (principal); Z13.6 Encounter for screening for cardiovascular disorders; E55.9 Vitamin D deficiency, unspecified; D72.819 Decreased white blood cell count, unspecified; R76.8 Other specified abnormal immunological findings in serum
CPT/HCPCS: 36415; 80053; 80061; 82306; 85025; 85652; 86038; 86039; 86141; 86200; 86225; 86235; 86431

== ENCOUNTER 2023-10-08 12:45 | Outpatient (REF) | payer OTHER, SELFPAY | END 2023-10-08 12:46 | disposition home or self-care (01) | LOC: HO.MAMMO 12:45 | PROVIDERS: PCP Internal Medicine; Visit Provider Internal Medicine | DX: Z12.31 Encounter for screening mammogram for malignant neoplasm of breast (principal) | CPT/HCPCS: 77063; 77067 ==

== ENCOUNTER → 2023-10-08 12:45 | Outpatient (BNV) | payer OTHER, SELFPAY | PROVIDERS: PCP Internal Medicine; Visit Provider Radiology Diagnostic Radiology | DX: Z12.31 Encounter for screening mammogram for malignant neoplasm of breast (principal) | CPT/HCPCS: 77063; 77067 ==

== ENCOUNTER 2023-12-02 08:58 | Outpatient (REF) | payer OTHER, SELFPAY ==
[2023-12-02 09:21] LABS: Estimated Average Glucose 103 mg/dL; Hemoglobin A1c % 5.2 % (<6.0)
== END 2023-12-02 08:59 | disposition home or self-care (01) ==
LOC: HO.LAB 08:58
PROVIDERS: Visit Provider Internal Medicine
DX: E11.40 Type 2 diabetes mellitus with diabetic neuropathy, unspecified (principal)
CPT/HCPCS: 36415; 83036

== ENCOUNTER 2024-06-01 08:23 | Outpatient (AMB) | payer OTHER, SELFPAY ==
--- NOTE | 2024-06-01 08:28 | A.OFFVIS_ITS ---
Intake Visit Reasons: hormones therapy Director Of Grants: Director Of Grants Present (Francesca) Allergies pollen Allergy (Intermediate, Uncoded 08/05/23 08:44) upper respiratory issues HPI Comments Details: Presenting interested in discussing hormonal replacement therapy. The patient has been complaining of weight gain and brain fogginess, no hot flashes or night sweats no other menopausal symptoms. [facility] Medical History (Updated 06/01/24 @ 08:39 by Montana Díaz MD) Low back pain Ganglion cyst DEE DEE positive Hip osteoarthritis Leukopenia Hypovitaminosis D Physical exam Renal calculi Vertigo Ovarian cyst Endometriosis Migraine headache Surgical History (Updated 06/01/24 @ 08:36 by Montana Díaz MD) History of hysterectomy Family History Mother Diabetes mellitus Father Essential hypertension Renal cancer Family/Other Mental health disorder Substance use disorder Social History Household Members: Spouse and Children Housing: House Are you a primary foster care case manager to a significant other at home: No Do you presently have visiting nurse or other home services: No Alcohol intake: current Alcohol intake frequency: holidays/special occasions only Patient Tobacco Use Status: Never used Tobacco e-Cigarette/Vaping Use: Never Used Second Hand Smoke Exposure: No Substance Use Type: Marijuana service: No Current occupational status: employed Current occupational exposures/hazards: No Sexual orientation: Straight/Heterosexual Gender identity: Female Cognitive needs: No Hearing needs: No Vision needs: Yes Female Reproductive History Menstrual Age of Menarche: 10 Review of Systems Const All systems reviewed & are unremarkable except as noted in HPI and below Reports as per HPI and Reports no additional complaints GI Reports no additional complaints Reports no additional complaints Assessment & Plan Assessment & Plan (1) Menopausal symptoms: Code(s): N95.1 - Menopausal and female climacteric states Category: Medical Plan: Discussed with the patient the symptoms she is experiencing are non specific could be caused by other conditions. Will start by checking FSH/LH. Check the results and treat accordingly. Instructions given the patient to schedule a 2 week follow-up appointment. Orders: Orders Follicle Stimulating Hormone Today N95.1 - Menopausal and female climacteric states Lutenizing Hormone Today N95.1 - Menopausal and female climacteric states Coding Level of Care Code Est Pt Level 3 (84757) Diagnoses Menopausal symptoms N95.1
--- OUTSIDE RECORDS SUMMARY | 2024-06-01 08:49 | XMS_ITS | Data Portability ---
Author Organization [place] - [facility], Allergy Address [address] [address] Care Team Providers Care Adapted Physical Education Specialist Name Role Phone NATALIO BOLTON Primary Care Provider [phone] Assessment Encounter Date Assessment Date Assessment LastModified by Organization Details LastModified Time 10/07/2023 10/07/2023 Patient is doing well on immunotherapy program. They are compliant with therapy. Symptoms are improving, but not yet resolved. They will continue with treatment and followup in 6 months. All questions were answered. [email or web address] Not available 10/07/2023 16:23:28 Plan of Treatment Reminders Order Date Submit Date Provider Last Modified By Organization Details Last Modified Time Details Appointments None record ed. Lab None record ed. Referral None record ed. Procedures None record ed. Surgeries None record ed. Imaging None record ed. Medication Orders None record ed. Patient TargetsNo targets recorded. Patient InstructionsNo instructions recorded. Reason for Referral None Reported. Results Created Date Observation Date Name Description Value Unit Range Abnormal Flag Note LastModifiedBy Organization Detail LastModifiedTime 12/24/1906/19/2022 imagi ng/di agnos tic resul t No observ ation record ed. [email or web address] Not Available 05:05:23 Result Notes None recorded. Problems Name Problem SNOMED Code Status Onset Date Resolution Date Notes Provider Name and Address Organization Details Recorded Time Acute pansinusit is 6689147 Active 2022 Acute pansinusi tis, unspecifi ed; Note: Date Diagnosed : 11/08/2022 2:48 PM (J01.40) Not [facility] 4 03:25:13 Deviated nasal septum 839644841 Active 2022 Deviated nasal septum; Note: Date Diagnosed : 11/08/2022 2:48 PM (J34.2) Not Available [facility] 4 03:25:13 Allergic rhinitis 19843306 Active 2022 Allergic Rhinitis; Note: Date Diagnosed : 3 2:52 PM (477.9) Note: Date Diagnosed : 3 2:52 PM (477.9) Allergi c rhinitis, unspecifi ed; Note: Date Diagnosed : 11/08/2022 2:51 PM (J30.9) Note: Date Diagnosed : 11/08/2022 2:51 PM (J30.9) ; Start Date : 3 JOSELUIS PORTER MD [address] [place] [address],[place] [address], [facility] [place], [phone] , [facility] 4 16:23:17 Snoring 43308446 Active 2022 Snoring; Note: Date Diagnosed : 11/08/2022 2:48 PM (R06.83) Not Available [facility] 4 03:25:13 Problem Notes None recorded. Procedures Surgical History None recorded. Imaging Results Imaging Date Name Status LastModified by [facility] Details LastModified Time 06/19/2022 imaging/diag nostic result completed [email or web address] Information not available 12/24/2023 05:05:23 Procedure Notes None recorded. Medical Equipment None Reported. Medications Name Sig Start Date Stop Date Status Note LastModified by Organization Details LastModified Time freestyle lancets misc active Not Available Not Available Not Available amoxicilli n 500 mg capsule active Not Available Not Available Not Available prednisolo ne acetate 1 % eye drops,susp ension active Not Available Not Available Not Available apple cider vinegar 600 mg capsule active Medicatio n ID: [id number] Br and Name: apple cider vinegar S end Method: E-Prescri bed Subs Allowed: subs OK Medica tionGener icName: apple cider vinegar Not Available Not Available Not Available epinephrin e 0.3 mg/0.3 mL injection, auto-injec tor Inject 1 pen injector single dose as needed active Not Available Not Available No t Available Vitals Date Recorded Body height Body mass index (BMI) Body weight Provider Name and Address Organization Details Last Updated DateTime 10/07/2023 170.18 cm 25.1 kg/m2 17693.78 g Serena Luis [place] - [facility] 10/07/2023 16:16:00 Social History None recorded. Functional Status None recorded. Mental Status None recorded. Family History Nothing Reported. Medical History No medical history recorded. Gynecological HistoryNo gynecological history recorded. Obstetrics History GPAL:G 0 P 0 0 0 0 Past Encounters Encounter ID Performer Location Encounter Start Date Encounter Closed Date Diagnosis/Indication Diagnosis SNOMED-CT Code Diagnosis ICD10 Code Diagnosis Note [id number] JOSELUIS PORTER MD [facility] [address] [address] 10/07/2023 16:00:50 10/07/2023 16:47:58 Allergic rhinitis 83382956 J30.9 Health Concerns Section Related Observation LastModified by Organization Detai ls LastModified Time None Recorded Concern Status LastModified by Organization Details LastModified Time None Recorded Advance Directives Directive None Recorded Payers Encounter Date Sequence Insurance Name Policy Number Policy Chavez Covered Member ID Chavez Member ID Guarantor Name 10/07/2023 1 [employer] OF [facility] [id number] Addis Lugoi [id number] Addis Julien Anand Notes Date Note Type Note Provider Name and Address Organization Details Recorded Time text/html allergy testing 01/29/23multiple sensitivities significantinitiated [facility] 04/2023feels her seasonal allergies were better controlled this spring - 80% improved ct sinus [place] 06/19/22 - septum spur to left. mucosal thickening in bilateral frontal, max and ethmoid sinus with no complete opacification. possible air fluid left in left max sinusworks running blood bank at [place] JOSELUIS PORTER MD [address] [place] [address], [phone], [place] - [facility] 10/07/2023 16:30:10 OBGyn Episode No OBEpisode recorded.
== END 2024-06-01 09:01 | disposition home or self-care (01) ==
LOC: HO.HWS 08:23
PROVIDERS: PCP Internal Medicine; Visit Provider Obstetrics & Gynecology
DX: N95.1 Menopausal and female climacteric states (principal)
CPT/HCPCS: 99213

== ENCOUNTER → 2024-06-01 08:23 | Outpatient (BNVA) | payer OTHER, SELFPAY | PROVIDERS: PCP Internal Medicine; Visit Provider Obstetrics & Gynecology ==

== ENCOUNTER 2024-06-07 11:44 | Outpatient (REF) | payer OTHER, SELFPAY ==
[2024-06-08 19:02] LABS: Lutenizing Hormone 2.6 mIU/mL
== END 2024-06-07 11:45 | disposition home or self-care (01) ==
LOC: HO.LAB 11:44
PROVIDERS: Visit Provider Obstetrics & Gynecology
DX: N95.1 Menopausal and female climacteric states (principal)
CPT/HCPCS: 36415; 83001; 83002

== ENCOUNTER 2024-06-24 11:01 | Outpatient (AMB) | payer OTHER, SELFPAY ==
[2024-06-24 11:10] VITALS: BMI 36.0
--- NOTE | 2024-06-24 11:10 | MHC.OFFVIS ---
Vital Signs 06/24/24 11:10 Height 4 ft 7 in Weight 155 lb BMI 36.0 Intake Visit Reasons: follow up labs Allergies pollen Allergy (Intermediate, Uncoded 08/05/23 08:44) upper respiratory issues HPI Comments Details: Presenting for follow-up, FSH/LH are in the premenopausal range, no hot flashes or night sweats. Still experiencing brain fog PFSH Medical History (Updated 06/24/24 @ 11:30 by Montana Díaz MD) Low back pain Ganglion cyst DEE DEE positive Hip osteoarthritis Leukopenia Hypovitaminosis D Physical exam Renal calculi Vertigo Ovarian cyst Endometriosis Migraine headache Surgical History (Updated 06/01/24 @ 08:36 by Montana Díaz MD) History of hysterectomy Family History Mother Diabetes mellitus Father Essential hypertension Renal cancer Family/Other Mental health disorder Substance use disorder Social History Household Members: Spouse and Children Housing: House Are you a primary critical care nurse specialist to a significant other at home: No Do you presently have visiting nurse or other home services: No Alcohol intake: current Alcohol intake frequency: holidays/special occasions only Patient Tobacco Use Status: Never used Tobacco e-Cigarette/Vaping Use: Never Used Second Hand Smoke Exposure: No Substance Use Type: Marijuana service: No Current occupational status: employed Current occupational exposures/hazards: No Sexual orientation: Straight/Heterosexual Gender identity: Female Cognitive needs: No Hearing needs: No Vision needs: Yes Female Reproductive History Menstrual Age of Menarche: 10 Review of Systems Const All systems reviewed & are unremarkable except as noted in HPI and below Reports as per HPI and Reports no additional complaints GI Reports no additional complaints Reports no additional complaints Physical Exam Vital Signs: BMI result Body Mass Index 36.0 Assessment & Plan Assessment & Plan (1) Premenopausal patient: Code(s): N95.9 - Unspecified menopausal and perimenopausal disorder Category: Medical Plan: Discussed with the patient the results of FSH/LH, recommended the patient to contact her PCP for further management. All questions answered, the patient verbalized understanding Coding Level of Care Code Est Pt Level 3 (44123) Diagnoses Premenopausal patient N95.9
--- OUTSIDE RECORDS SUMMARY | 2024-06-24 12:19 | XMS_ITS | Data Portability ---
Author Organization [place] - [facility], Allergy Address [address] [address] Care Team Providers Care Vending Machine Repairer Name Role Phone NATALIO BOLTON Primary Care Provider Assessment Encounter Date Assessment Date Assessment LastModified [...] Organization Details Recorded Time Acute pansinusit is 9027319 Active 2022 Acute pansinusi tis, unspecifi ed; Note: Date Diagnosed : 11/08/2022 2:48 PM (J01.40) Not Available [facility] 4 03:25:13 Deviated nasal septum 175729914 Active 2022 Deviated nasal septum; Note: Date Diagnosed : 11/08/2022 2:48 PM (J34.2) Not Available [facility] 4 03:25:13 Allergic rhinitis 19517902 Active 2022 Allergic Rhinitis; Note: Date Diagnosed : 3 2:52 PM (477.9) Note: Date Diagnosed : 3 2:52 PM (477.9) Allergi c rhinitis, unspecifi ed; Note: Date Diagnosed : 11/08/2022 2:51 PM (J30.9) Note: Date Diagnosed : 11/08/2022 2:51 PM (J30.9) ; Start Date : 3 JOSELUIS PORTER MD [address] [place] [address],[place] [address], [place], [phone] , [facility] 4 16:23:17 Snoring 79419149 Active 2022 Snoring; Note: Date Diagnosed : 11/08/2022 2:48 PM (R06.83) Not Available [facility] 4 03:25:13 Problem Notes None recorded. Procedures Surgical History None recorded. Imaging Results Imaging Date Name Status LastModified by [facility] Details LastModified Time 06/19/2022 imaging/diag nostic result [...] 600 mg capsule active Medicatio n ID: [id number] Br and Name: apple cider vinegar S [...] Updated DateTime 10/07/2023 170.18 cm 25.1 kg/m2 88628.78 g Serena Luis [place] - [facility] 10/07/2023 16:16:00 Social History None recorded. Functional [...] Note [id number] JOSELUIS PORTER MD [facility] [address] [address] 10/07/2023 16:00:50 10/07/2023 16:47:58 Allergic rhinitis 79607097 J30.9 Health Concerns Section Related Observation LastModified by Organization Detai ls LastModified Time None Recorded Concern Status LastModified by Organization Details LastModified Time None Recorded Advance Directives Directive None Recorded Payers Encounter Date Sequence Insurance Name Policy Number Policy Chavez Covered Member ID Chavez Member ID Guarantor Name 10/07/2023 1 [employer] OF [facility] [id number] Addis Lugoi [id number] Addis Julien Anand Notes Date Note Type Note Provider Name and Address Organization Details Recorded Time text/html allergy testing 01/29/23multiple sensitivities significantinitiated [facility] 04/2023feels her seasonal allergies were better controlled this spring - 80% improved ct sinus [place] 06/19/22 - septum spur to left. mucosal thickening in bilateral frontal, max and ethmoid sinus with no complete opacification. possible air fluid left in left max sinusworks running blood bank at [place] JOSELUIS PORTER MD [address] [place] [address], [phone], [place] - [facility] 10/07/2023 16:30:10 OBGyn Episode No OBEpisode recorded.
== END 2024-06-24 11:35 | disposition home or self-care (01) ==
LOC: HO.HWS 11:01
PROVIDERS: PCP Internal Medicine; Visit Provider Obstetrics & Gynecology
DX: N95.9 Unspecified menopausal and perimenopausal disorder (principal)
CPT/HCPCS: 99213

== ENCOUNTER 2024-08-10 16:07 | Outpatient (AMB) | payer OTHER, SELFPAY ==
--- NOTE | 2024-08-10 16:12 | A.OFFPC_ITS ---
Vital Signs 08/10/24 16:17 Height 5 ft 7 in Weight 160 lb BMI 25.1 BP 112/70 Blood Pressure Location Lt brachial Position Sitting Intake Visit Reasons: physical exam Intake Note: Patient here for a physical exam Manager Training And Development Required: No Accompanied by: Self / Same As Patient Allergies pollen Allergy (Intermediate, Uncoded 08/10/24 16:27) upper respiratory issues Medication List - Last Reconciled 08/10/24 by Dee Dee Chaidez MD blood sugar diagnostic (FreeStyle Lite Strips) Use 1 strip once a day blood-glucose meter (FreeStyle Lite Meter kit) As directed cholecalciferol (vitamin D3) 25 mcg PO DAILY 90 days lancets (FreeStyle Lancets) Use 1 lancet once a day melatonin 5 mg PO DAILY PRN multivitamin 1 tab PO BID naproxen sodium (Aleve) 440 mg PO BID PRN omeprazole 20 mg PO DAILY 90 days sulfamethoxazole-trimethoprim 800-160 mg (Bactrim DS) 1 tab PO BID 70 days Tobacco use date assessed: 08/10/24 Dental Screening Dental Screen Date: 08/10/24 Did you have a dental visit in the last 12 months?: Yes Did you have a dental problem in the last 6 months where you did not have access to dental care?: No Was dental information given to patient?: Patient has dentist HPI HPI Comments History of Present Illness Details The patient is a 44-year-old female presenting for an annual physical examination. Her medical history includes essential hypertension, controlled with treatment, and psoriasis. She reports gastrointestinal issues managed with omeprazole, exacerbated by occasional alcohol consumption. She is currently experiencing perimenopausal symptoms, particularly fogginess and weight management difficulties despite efforts to lose 20 pounds. Her BMI is 36. She is aware of and due for a tetanus booster vaccination, as her last dose was in 2007. The patient occasionally consumes alcohol, specifically wine and liquor, but has limited her consumption due to gastrointestinal discomfort. She is allergic to pollen and some medications. During the conversation, her need for regular health maintenance checks was discussed, including a mammogram and scheduling a colonoscopy as she is now 44 years old. - Tetanus vaccine booster needed due to last dose in 2007. - Previous mammogram done last summer; p kalpesh for a follow-up this summer. - Colonoscopy recommended as patient has turned 44 years old. - Re-evaluation of cholesterol levels an d comprehensive metabolic panel as part of routine health check. - Lifestyle modifications to address ove rweight status, aiming for gradual weight loss. - Vitamin D supplementation and multivit amins discussed. [facility] Medical History Low back pain Ganglion cyst DEE DEE positive Hip osteoarthritis Leukopenia Hypovitaminosis D Physical exam Renal calculi Vertigo Ovarian cyst Endometriosis Migraine headache Surgical History History of hysterectomy Family History Mother Diabetes mellitus Father Essential hypertension Renal cancer Family/Other Mental health disorder Substance use disorder Social History (Updated 08/10/24 @ 16:31 by Dee Dee Chaidez MD) Household Members: Spouse and Children Housing: House Are you a primary career counselor to a significant other at home: No Do you presently have visiting nurse or other home services: No Alcohol intake: current Alcohol intake frequency: holidays/special occasions only Alcohol type: wine and hard liquor Patient Tobacco Use Status: Never used Tobacco e-Cigarette/Vaping Use: Never Used Second Hand Smoke Exposure: No Substance Use Type: Marijuana service: No Current occupational status: employed Current occupational exposures/hazards: No Sexual orientation: Straight/Heterosexual Gender identity: Female Cognitive needs: No Hearing needs: No Vision needs: Yes Female Reproductive History Menstrual Age of Menarche: 10 Questionnaire PHQ-9 Over the last 2 weeks, how often have you been bothered by any of the following problems? 1. Little interest or pleasure in doing things: not at all 2. Feeling down, depressed, or hopeless: not at all 3. Trouble falling or staying asleep, or sleeping too much: not at all 4. Feeling tired or having little energy: not at all 5. Poor appetite or overeating: not at all 6. Feeling bad about yourself - or that you are a failure or have let yourself or your family down: not at all 7. Trouble concentrating on things, such as reading the newspaper or watching television: not at all 8. Moving or speaking so slowly that other people could have noticed. Or the opposite - being so fidgety or restless that you have been moving around a lot more than usual: not at all 9. Thoughts that you would be better off or of hurting yourself in some way: not at all Total score: 0 Depression Screening Interpretation: Negative Depression Screening Done: Yes 52670 - PHQ-9 Billing: Yes Source: Developed by Drs. Jim Trevino, Cheryl Patel, Jarod Galicia and colleagues, with an educational jossie from [employer]. Thrive Questionnaire Date Thrive assessed: 08/10/24 I am a: Patient What is your living situation today?: I have a steady place to live Within the past 12 months, did the food you bought not last and you didn't have the money to get more?: Never true Within the past 12 months, did you worry whether your food would run out before you got money to buy more?: Never true Do you have trouble paying for medicines?: No Do you have trouble getting transportation to medical appointments?: No Do you have trouble paying your heating and electricity bill?: No Do you have trouble taking care of your child, family member or friend?: No Do you have trouble with day-to-day activities such as bathing, preparing meals, shopping, managing finances, etc.?: No Are you currently unemployed and looking for a job?: No Are you interested in more education?: No Please select the resources that you would like help with: None Currently or been in a relationship where the following occur: No concerns reported THRIVE Score: 0 AUDIT C Alcohol Use Questionnaire (AUDIT-C) 1. How often do you have a drink containing alcohol?: Never Total Score: 0 Score Reviewed/Action Taken: No TREY-7 AMB Questionnaire TREY-7 Date TREY - 7 assessed: 08/10/24 Feeling nervous, anxious, or on edge: 0 = Not at all Not being able to stop or control worryin = Not at all Worrying too much about different things: 0 = Not at all Trouble relaxin = Not at all Being so restless that it is hard to sit still: 0 = Not at all Becoming easily annoyed or irritable: 0 = Not at all Feeling afraid as if something awful might happen: 0 = Not at all Total TREY-7 score (0-4 normal; 5-9 mild; 10-14 moderate; 15-21 severe): 0 Source: Developed by Drs. Jim Trevino, Cheryl Patel, Jarod Galicia and colleagues, with an educational jossie from [employer]. TREY-7 Assessment Billing TREY-7 Assessment Tool: TREY-7 Assessment 12394 Review of Systems Const All systems reviewed & are unremarkable except as noted in HPI and below Card Denies chest pain at rest, Denies chest pain with activity, Denies edema, Denies irregular heart rhythm, Denies claudication, Denies dyspnea, Denies dyspnea on exertion, Denies orthopnea, Denies paroxysmal nocturnal dyspnea and Denies slow heart rate Resp Denies cough, Denies dyspnea and Denies dyspnea on exertion GI Denies abdominal pain, Denies change in bowel habits, Denies excessive flatus, Denies nausea and Denies vomiting Denies urinary incontinence, Denies urinary hesitancy and Denies urinary urgency Musc Denies abnormal gait, Denies atrophy, Denies deformity and Denies limited range of motion Skin/Breast Denies bleeding lesions, Denies changing lesions and Denies rash Neuro Denies abnormal gait, Denies behavioral changes and Denies lack of coordination Psych Denies behavioral changes Physical exam (Primary Care) Vital Signs: Last Vital Signs BP 112/70 08/10/24 16:17 BMI result Body Mass Index 25.1 Tobacco/Smoking Status: Tobacco use Status Tobacco use date assessed 08/10/24 08/10/24 16:21 Patient Tobacco Use Status Never used Tobacco 08/10/24 16:31 e-Cigarette/Vaping Use Never Used 08/10/24 16:31 PHQ-9: PHQ-9 Score PHQ-9: Total score 0 08/10/24 20:14 Depression Screening Interpretation: Negative Thrive Assessment: Date of Thrive Assessment Date Thrive assessed 08/10/24 08/10/24 16:21 Currently or been in a relationship where the following occur: No concerns reported HENMT Head: Yes normal to inspection, Yes normocephalic and Yes atraumatic Ears: external ears normal Eyes General: appearance normal, both eyes and all related structures Eyelids: Yes eyelids normal Conjunctivae: conjunctivae normal Neck Neck: Yes normal visual inspection and Yes supple Resp Effort & Inspection: normal respiratory effort Auscultation: clear to auscultation bilaterally Cardio Jugular venous distension: no JVD Rate: regular rate Rhythm: regular rhythm Heart sounds: S1 normal heart sound present and S2 normal heart sound present GI Inspection: Yes normal to inspection Palpation (GI): Soft to palpation and nontender Auscultation: normal bowel sounds Skin General skin exam: no rashes or lesions noted Neuro General: no focal motor deficits Extrem General: Yes full ROM Psych Appearance: grossly normal Coding Level of Care Code Est Pt Prev Care 40-64y(46770) Diagnoses Physical exam Z00.00 Additional Codes TREY-7 Assessment Billing - TREY-7 Assessment Tool: TREY-7 Assessment 77944 ([id number]) PHQ-9 - 19921 - PHQ-9 Billing: Yes ([id number]) Time Spent (min) 30 Assessment & Plan Assessment & Plan (1) Physical exam: Code(s): Z00.00 - Encounter for general adult medical examination without abnormal findings Category: Medical Plan 1. Psoriasis and essential hypertension are to remain under current management, but I advised considering lifestyle interventions for perimenopausal symptom support, including cognitive fogginess and weight challenges. With her BMI 36, focus on weight management was stressed. Colonoscopy scheduling will be initiated as she turns 44, and routine labs will be repeated to monitor cholesterol and metabolic health, which have previously returned within normal limits.: Patient was informed and verbally consented to the use of an ambient scribe for clinic note documentation during this visit. During our discussion, I informed the patient of the need to update her tetanus immunization, given it had been over ten years. We reviewed the progression of her perimenopausal symptoms and discussed lifestyle adaptations to support these changes. I emphasized her weight loss goals in the context of her BMI being 36, which is considered overweight. I thoroughly explained the importance of scheduling a colonoscopy as a preventive measure, as she is now 44. The patient agreed to repeat lab tests to confirm her current metabolic and cholesterol status. Orders: Orders Vitamin D 25-OH Total 08/10/24 E55.9 - Vitamin D deficiency, unspecified Lipid Panel 08/10/24 Z00.00 - Encounter for general adult medical examination without abnormal findings Comprehensive [place]. Panel Fast 08/10/24 Z00.00 - Encounter for general adult medical examination without abnormal findings Referrals Open Access Screening Colonoscopy Referral Z12.12 - Encounter for screening for malignant neoplasm of rectum Medications: Discontinued sulfamethoxazole-trimethoprim 800-160 mg (Bactrim DS) Discontinued Reason: Patient Completed Course 1 tab PO BID 70 days 140 tabs 0RF Patient Instructions: - Schedule and receive a tetanus booster vaccination. - Continue current hypertension management and psoriasis treatment. - Follow up for colonoscopy scheduled due to turning 44. - Monitor perimenopausal symptoms and modify lifestyle as necessary. - Pursue weight reduction strategies with focused dietary and physical activity adjustments. - Arrange for follow-up lab tests to reevaluate cholesterol and metabolic health.
[2024-08-10 16:17] VITALS: BP 112/70; BMI 25.1
--- OUTSIDE RECORDS SUMMARY | 2024-08-10 18:53 | XMS_ITS | Data Portability ---
Author Organization [place] - [facility], Allergy Address [address] [address] Care Team Providers Care Patternmaker Plaster Name Role Phone NATALIO BOLTON Primary Care [...] Organization Details Recorded Time Acute pansinusit is 8985233 Active 2022 Acute pansinusi tis, unspecifi ed; Note: Date Diagnosed : 11/08/2022 2:48 PM (J01.40) Not Available [facility] 08/02[facility]202 4 03:25:13 Deviated nasal septum 740963534 Active 2022 Deviated nasal septum; Note: Date Diagnosed : 11/08/2022 2:48 PM (J34.2) Not Available [facility] 4 03:25:13 Allergic rhinitis 18761277 Active 2022 Allergic Rhinitis; Note: Date Diagnosed : 3 2:52 PM (477.9) Note: Date Diagnosed : 3 2:52 PM (477.9) Allergi c rhinitis, unspecifi ed; Note: Date Diagnosed : 11/08/2022 2:51 PM (J30.9) Note: Date Diagnosed : 11/08/2022 2:51 PM (J30.9) ; Start Date : 3 JOSELUIS PORTER MD [address] [place] [address],[place] [address], [facility] [place], [address] , [facility] 4 16:23:17 Snoring 36048123 Active 2022 Snoring; Note: Date Diagnosed : 11/08/2022 2:48 PM (R06.83) Not Available [facility] 4 03:25:13 Problem Notes None recorded. Procedures Surgical History None recorded. Imaging Results Imaging Date Name Status LastModified by [facility] Details LastModified Time 06/19/2022 imaging/diag nostic result [...] 600 mg capsule active Medicatio n ID: [id number] Br and Name: apple cider vinegar S [...] Updated DateTime 10/07/2023 170.18 cm 25.1 kg/m2 81528.78 g Serena Luis [place] - [facility] 10/07/2023 16:16:00 Social History None recorded. 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 mucosal thickening in bilateral frontal, max and ethmoid sinus with no complete opacification. possible air fluid left in left max sinusworks running blood bank at [place] JOSELUIS PORTER MD [address] [place] [address], [phone], [place] - [facility] 10/07/2023 16:30:10 OBGyn Episode No OBEpisode recorded.
== END 2024-08-10 16:41 | disposition home or self-care (01) ==
LOC: HO.HMCH 16:07
PROVIDERS: PCP Internal Medicine; Visit Provider Internal Medicine
DX: Z00.00 Encounter for general adult medical examination without abnormal findings (principal)

== ENCOUNTER → 2024-08-10 16:07 | Outpatient (BNVA) | payer OTHER, SELFPAY | PROVIDERS: PCP Internal Medicine; Visit Provider Internal Medicine | DX: Z00.00 Encounter for general adult medical examination without abnormal findings (principal) | CPT/HCPCS: 96127 ==

== ENCOUNTER 2024-08-18 12:26 | Outpatient (AMB) | payer OTHER, SELFPAY ==
--- NOTE | 2024-08-18 12:37 | A.OFFVIS_ITS ---
VS Expanded 08/18/24 12:42 09/06/24 09:54 Height 5 ft 7 in 5 ft 7 in Weight 163 lb 9.328 oz 164 lb BMI 25.6 25.7 Intake Visit Reasons: R73.02 - Impaired glucose tolerance (oral) Allergies pollen Allergy (Intermediate, Uncoded 08/10/24 16:27) upper respiratory issues Nutrition Presentation Details: Pt presents for MNT for PreDM food frequency fruits: 1-2/d ve-4x/wk dairy: 1-2/d fish ;0-1x/wk starches > 25/d Pt reports lacking meal routine etoh/smoking --- PA: ADL BS Monitoring Most Recent Diabetes Results: Cholesterol 157 mg/dL (<200) 09/03/24 HDL Cholesterol 45 mg/dL (>40) 09/03/24 Triglycerides 70 mg/dL (<150) 09/03/24 Creatinine 0.71 mg/dL (0.5-1.4) 09/03/24 Blood Urea Nitrogen 13 mg/dL (9-16) 09/03/24 Sodium 140 mmol/L (135-145) 09/03/24 Potassium 4.2 mmol/L (3.3-5.1) 09/03/24 Chloride 108 mmol/L (96-108) 09/03/24 Carbon Dioxide 26 mmol/L (22-29) 09/03/24 Calcium 9.5 mg/dL (8.4-10.2) 09/03/24 AST 15 U/L (5-31) 09/03/24 ALT 18 U/L (0-31) 09/03/24 Total Protein 6.7 g/dL (6.5-8.0) 09/03/24 Albumin 4.4 g/dL (3.5-5.0) 09/03/24 KEJ-Eiansnk-Ge.Jeor Equation Height: 5 ft 7 in Weight: 164 lb Resting Metabolic Rate: 1424.37 Calculated Activity Level: Mild Activity Calories Needed to Maintain Weight: 1958.51 Diagnosis Nutrition problem #1: food nutri know defi As related to (etiology) #1: diagnosis As evidenced by (sign/symptom) #1: knowledge deficit of diet [facility] Medical History (Updated 08/24/24 @ 13:23 by Zackary Michel MD) Sacrococcygeal pilonidal cyst Low back pain Ganglion cyst DEE DEE positive Hip osteoarthritis Leukopenia Hypovitaminosis D Physical exam Renal calculi Vertigo Ovarian cyst Endometriosis Migraine headache Surgical History History of hysterectomy Family History Mother Diabetes mellitus Father Essential hypertension Renal cancer Family/Other Mental health disorder Substance use disorder Social History (Updated 08/10/24 @ 16:31 by Dee Dee Chaidez MD) Household Members: Spouse and Children Housing: House Are you a primary care director rn to a significant other at home: No Do you presently have visiting nurse or other home services: No Alcohol intake: current Alcohol intake frequency: holidays/special occasions only Alcohol type: wine and hard liquor Patient Tobacco Use Status: Never used Tobacco e-Cigarette/Vaping Use: Never Used Second Hand Smoke Exposure: No Substance Use Type: Marijuana service: No Current occupational status: employed Current occupational exposures/hazards: No Sexual orientation: Straight/Heterosexual Gender identity: Female Cognitive needs: No Hearing needs: No Vision needs: Yes Female Reproductive History Menstrual Age of Menarche: 10 Assessment & Plan Assessment & Plan (1) Impaired glucose tolerance: Code(s): R73.02 - Impaired glucose tolerance (oral) Category: Medical Plan: Wt: 74.5 Kg ( ) Est kcal needs as per MSJ: 2000 (40% carb, 30% protein/fat) Est fluid needs as per 25-30 ml/d: 2200 Est prot per day as per 1 g/kg bw: 75 /25mmend fiber intake : 8-10 g per day and gradually increase to 25-28 g per day for women and 35-38 g for men or as tolerated Recommend sodium intake per day : less than 2000 mg Educated patient on: ( R = reviewed V = verbalizes understanding N/R = needs review N/A = not applicable * Food sources of carbohydrate, adequate serving sizes and its role in various health conditions: R * Differences between complex carbohydrates a simple carbohydrates, role of fiber in diet: R * Lean protein sources of foods: R * Differences between types of fats and role in diet (mono on saturated fat fatty acids, saturated fatty acids, trans fats): R basic/general * Food sources of sodium in salt and healthy modifications for heart health in kidney health: R V R/V * Vitamins and minerals: R V N/R * Healthy plate method concept: R * Physical activity: Benefits a precaution: R V N/R * Hypoglycemia protocol (rule of 15): R V N/R * Dietary prevention of Hyperglycemia: R Patient Instructions: Follow healthy plate method, reducing total carb to <75 g per meal , 3 meals/day and 0-20 g as snack Coding Level of Care Code Nutr Indiv Intake (16231) Diagnoses Impaired glucose tolerance R73.02 Time Spent (min) 30
[2024-08-18 12:42] VITALS: BMI 25.6
[2024-09-06 09:54] VITALS: BMI 25.7
== END 2024-08-18 13:15 | disposition home or self-care (01) ==
LOC: HO.ENCR 12:27
PROVIDERS: PCP Internal Medicine; Visit Provider Dietitian, Registered
DX: R73.02 Impaired glucose tolerance (oral) (principal)

== ENCOUNTER → 2024-08-18 12:26 | Outpatient (BNVA) | payer OTHER, SELFPAY | PROVIDERS: PCP Internal Medicine; Visit Provider Dietitian, Registered | DX: R73.02 Impaired glucose tolerance (oral) (principal); Z71.3 Dietary counseling and surveillance | CPT/HCPCS: 97802 ==

== ENCOUNTER 2024-08-20 15:58 | Outpatient (AMB) | payer OTHER, SELFPAY ==
--- OUTSIDE RECORDS SUMMARY | 2024-08-20 16:01 | XMS_ITS | Data Portability ---
Author Organization [place] - [facility], Allergy Address [address] [address] Care Team Providers Care Chief Estimator Name Role Phone NATALIO BOLTON Primary Care [...] Organization Details Recorded Time Acute pansinusit is 4471605 Active 2022 Acute pansinusi tis, unspecifi ed; Note: Date Diagnosed : 11/08/2022 2:48 PM (J01.40) Not Available [facility] 4 03:25:13 Deviated nasal septum 620193889 Active 2022 Deviated nasal septum; Note: Date Diagnosed : 11/08/2022 2:48 PM (J34.2) Not Available [facility] 4 03:25:13 Allergic rhinitis 90114046 Active 2022 Allergic Rhinitis; Note: Date Diagnosed : 3 2:52 PM (477.9) Note: Date Diagnosed : 3 2:52 PM (477.9) Allergi c rhinitis, unspecifi ed; Note: Date Diagnosed : 11/08/2022 2:51 PM (J30.9) Note: Date Diagnosed : 11/08/2022 2:51 PM (J30.9) ; Start Date : 3 JOSELUIS PORTER MD [address] [place] [address],[place] [address], [facility] [place], [phone] , [facility] 4 16:23:17 Snoring 47008852 Active 2022 Snoring; Note: Date Diagnosed : 11/08/2022 2:48 PM (R06.83) Not Available [facility] 4 03:25:13 Problem Notes None recorded. Procedures Surgical History None recorded. Imaging Results Imaging Date Name Status LastModified by [facility] Details LastModified Time 06/19/2022 imaging/diag nostic result [...] 600 mg capsule active Medicatio n ID: [id number] Br and Name: apple cider vinegar S [...] Updated DateTime 10/07/2023 170.18 cm 25.1 kg/m2 77263.78 g Serena Luis [place] - [facility] 10/07/2023 16:16:00 Social History None recorded. [...] Note 2768 JOSELUIS PORTER MD [facility] of [address] [address] 10/07/2023 16:00:50 10/07/2023 16:47:58 Allergic rhinitis 57636888 J30.9 Health Concerns Section Related Observation LastModified by Organization Detai ls LastModified Time None Recorded Concern Status LastModified by Organization Details LastModified Time None Recorded Advance Directives Directive None Recorded Payers Encounter Date Sequence Insurance Name Policy Number Policy Chavez Covered Member ID Chavez Member ID Guarantor Name 10/07/2023 1 [employer]UE B[employer]EFIT [employer] OF [facility] ([facility] [id number] Addis Lugoi [id number] Addis Julien Anand Notes Date Note Type Note Provider Name and Address Organization Details Recorded Time text/html allergy testing 01/29/23multiple sensitivities significantinitiated SLIT 04/2023feels her seasonal allergies were better controlled this spring - 80% improved ct sinus [place] 06/19/22 - septum spur to left. mucosal thickening in bilateral frontal, max and ethmoid sinus with no complete opacification. possible air fluid left in left max sinusworks running blood bank at [place] JOSELUIS PORTER MD [address] [place] [address], [phone], [place] - [facility] 10/07/2023 16:30:10 OBGyn Episode No OBEpisode recorded.
--- NOTE | 2024-08-20 16:11 | AM.OFFVISNUR ---
Intake Visit Reasons: tetanus Allergies pollen Allergy (Intermediate, Uncoded 08/10/24 16:27) upper respiratory issues Immunizations Boostrix Tdap 2.5 Lf unit-8 mcg-5 Lf/0.5 mL intramuscular syringe Performing Provider: Dee Dee Chaidez MD [facility] Administered by: Ileana Thompson LPN on 08/20/24 16:11 Dose Route Admin Location Dispensed Lot Number Expiration Date [facility] Rn Perinatal 0.5 mL IM Right Deltoid 0.5 mL [id number] 12/29/26 82957-248-51 [employer] VIS Given Date VIS Provided VIS Publication Date 08/20/24 Single Vaccine 20 Eligibility Eligibility Date Funding Source Not [facility] Eligible 08/20/24 Private Assessment & Plan Assessment & Plan Orders: Orders TDaP Immunization Today Z23 - Encounter for immunization Medications: New Boostrix Tdap (diphth,pertus(acell),tetanus) 0.5 mL IM ONCE 0.5 mL 0RF NS Z23 - Encounter for immunization Coding
== END 2024-08-20 16:12 | disposition home or self-care (01) ==
LOC: HO.HMCH 15:59
PROVIDERS: PCP Internal Medicine; Visit Provider Internal Medicine
DX: Z23 Encounter for immunization (principal)

== ENCOUNTER → 2024-08-20 15:58 | Outpatient (BNVA) | payer OTHER, SELFPAY | PROVIDERS: PCP Internal Medicine; Visit Provider Internal Medicine | DX: Z23 Encounter for immunization (principal) | CPT/HCPCS: 90471; 90715 ==

== ENCOUNTER 2024-08-23 12:37 | Outpatient (RCR) | payer OTHER, SELFPAY | END 2024-08-23 13:00 | disposition home or self-care (01) | LOC: HO.WCC 12:37 | PROVIDERS: PCP Internal Medicine; Visit Provider Surgery | DX: L05.91 Pilonidal cyst without abscess (principal); F12.90 Cannabis use, unspecified, uncomplicated | CPT/HCPCS: 99202 ==

== ENCOUNTER 2024-08-24 12:57 | Outpatient (AMB) | payer OTHER, SELFPAY ==
--- NOTE | 2024-08-24 13:04 | A.OFFVIS_ITS ---
Vital Signs 08/24/24 13:12 Height 5 ft 7 in Weight 165 lb BMI 25.8 BP 124/72 Blood Pressure Location Lt brachial Position Sitting Pulse 72 Intake Visit Reasons: zofia cyst Intake Note: Pt states, I have a wound on my buttocks. c/o pain, open wound, drainage. Has taken 2 courses of abx. Funeral Driver Required: No Allergies pollen Allergy (Intermediate, Uncoded 08/10/24 16:27) upper respiratory issues Medication List - Last Reconciled 08/24/24 by Nayan Dunaway RN blood sugar diagnostic (FreeStyle Lite Strips) Use 1 strip once a day blood-glucose meter (FreeStyle Lite Meter kit) As directed cholecalciferol (vitamin D3) 25 mcg PO DAILY 90 days lancets (FreeStyle Lancets) Use 1 lancet once a day melatonin 5 mg PO DAILY PRN multivitamin 1 tab PO BID naproxen sodium (Aleve) 440 mg PO BID PRN omeprazole 20 mg PO DAILY 90 days HPI HPI zofia cyst: Details: [age] year old female referred for a pilonidal cyst. She says had this area of drainage with an open wound on the sacrococcygeal region for a month now. She been on a course of oral antibiotics twice. She was referred to the [facility] because of this open wound and was referred to me because of this pilonidal cyst. She states that the area seems to have dried up recently. She has never had an I and D in the past. [facility] Medical History (Updated 08/24/24 @ 13:23 by Zackary Michel MD) Sacrococcygeal pilonidal cyst Low back pain Ganglion cyst DEE DEE positive Hip osteoarthritis Leukopenia Hypovitaminosis D Physical exam Renal calculi Vertigo Ovarian cyst Endometriosis Migraine headache Surgical History History of hysterectomy Family History Mother Diabetes mellitus Father Essential hypertension Renal cancer Family/Other Mental health disorder Substance use disorder Social History (Updated 08/10/24 @ 16:31 by Dee Dee Chaidez MD) Household Members: Spouse and Children Housing: House Are you a primary health care social worker to a significant other at home: No Do you presently have visiting nurse or other home services: No Alcohol intake: current Alcohol intake frequency: holidays/special occasions only Alcohol type: wine and hard liquor Patient Tobacco Use Status: Never used Tobacco e-Cigarette/Vaping Use: Never Used Second Hand Smoke Exposure: No Substance Use Type: Marijuana service: No Current occupational status: employed Current occupational exposures/hazards: No Sexual orientation: Straight/Heterosexual Gender identity: Female Cognitive needs: No Hearing needs: No Vision needs: Yes Female Reproductive History Menstrual Age of Menarche: 10 Review of Systems Const Denies chills and Denies fever(s) Card Denies chest pain, Denies dyspnea and Denies dyspnea on exertion Resp Denies cough, Denies dyspnea and Denies dyspnea on exertion GI Denies hematochezia and Denies change in bowel habits Denies hematuria Musc Denies back pain and Denies limited range of motion Neuro Denies focal weakness and Denies convulsions Psych Denies depression and Denies mood swings Physical Exam Vital Signs: Last Vital Signs Pulse 72 08/24/24 13:12 BP 124/72 08/24/24 13:12 BMI result Body Mass Index 25.8 Const General: comfortable and no acute distress Orientation/consciousness: patient oriented x3 Neck Neck: Yes no lymphadenopathy Resp Auscultation: clear to auscultation bilaterally Cardio Rhythm: regular rhythm GI Palpation (GI): Soft to palpation, nontender and no guarding Back/Spine/Pelvis Other: On sacrococcygeal area - note of multiple midline pits within the gluteal cleft, nontender induration, no discharge or fluctuance currently Neuro General: patient oriented x3 Assessment & Plan Assessment & Plan (1) Sacrococcygeal pilonidal cyst: Code(s): L05.91 - Pilonidal cyst without abscess Category: Medical Plan: She has a pilonidal cyst in the sacrococcygeal area. I explained to her that the swelling and drainage with likely to recur. I explained the option of proceeding with excision of the pilonidal cyst. I discussed the technique of this procedure. I reviewed the risks including but not limited to bleeding, infections, poor healing, postop pain, as well as the benefits and alternatives. I explained to her what to expect postoperatively She wants to proceed. Coding Level of Care Code New Pt Level 3 (34069) Diagnoses Sacrococcygeal pilonidal cyst L05.91
[2024-08-24 13:12] VITALS: BP 124/72; PULSE 72; BMI 25.8
--- OUTSIDE RECORDS SUMMARY | 2024-08-24 15:19 | XMS_ITS | Data Portability ---
Author Organization [place] - [facility], Allergy Address [address] [address] Care Team Providers Care Telegraph Office Telephone Clerk Name Role Phone NATALIO BOLTON Primary Care Provider [phone] Assessment Encounter Date Assessment Date Assessment LastModified [...] Abnormal Flag Note LastModifiedBy Organization Detail LastModifiedTime 12/24/19 24 06/19/2022 imagi ng/di agnos tic resul t No observ ation record ed. [email or web address] Not Available 05:05:23 Result Notes None recorded. Problems Name Problem SNOMED Code Status Onset Date Resolution Date Notes Provider Name and Address Organization Details Recorded Time Acute pansinusit is 8417639 Active 2022 Acute pansinusi tis, unspecifi ed; Note: Date Diagnosed : 11/08/2022 2:48 PM (J01.40) Not Available [facility] 4 03:25:13 Deviated nasal septum 081245497 Active 2022 Deviated nasal septum; Note: Date Diagnosed : 11/08/2022 2:48 PM (J34.2) Not Available [facility] 4 03:25:13 Allergic rhinitis 49278532 Active 2022 Allergic Rhinitis; Note: Date Diagnosed : 3 2:52 PM (477.9) Note: Date Diagnosed : 3 2:52 PM (477.9) Allergi c rhinitis, unspecifi ed; Note: Date Diagnosed : 11/08/2022 2:51 PM (J30.9) Note: Date Diagnosed : 11/08/2022 2:51 PM (J30.9) ; Start Date : 3 JOSELUIS PORTER MD [address] [place] [address],[place] [address], [facility] [place], [address] , [facility] 4 16:23:17 Snoring 77702058 Active 2022 Snoring; Note: Date Diagnosed : 11/08/2022 2:48 PM (R06.83) Not Available [facility] 4 03:25:13 Problem Notes None recorded. Procedures Surgical History None recorded. Imaging Results Imaging Date Name Status LastModified by [facility] Details LastModified Time 06/19/2022 imaging/diag [...] 600 mg capsule active Medicatio n ID: [id number] Br and Name: apple cider vinegar S [...] Updated DateTime 10/07/2023 170.18 cm 25.1 kg/m2 92506.78 g Serena Luis [place] - [facility] 10/07/2023 16:16:00 Social History None recorded. 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 mucosal thickening in bilateral frontal, max and ethmoid sinus with no complete opacification. possible air fluid left in left max sinusworks running blood bank at [place] JOSELUIS PORTER MD [address] [place] [address], [phone], [place] - [facility] 10/07/2023 16:30:10 OBGyn Episode No OBEpisode recorded.
== END 2024-08-24 13:25 | disposition home or self-care (01) ==
LOC: HO.HGS 12:57
PROVIDERS: PCP Internal Medicine; Visit Provider Surgery
DX: L05.91 Pilonidal cyst without abscess (principal)
CPT/HCPCS: 99203

== ENCOUNTER → 2024-08-24 12:57 | Outpatient (BNVA) | payer OTHER, SELFPAY | PROVIDERS: PCP Internal Medicine; Visit Provider Surgery ==

== ENCOUNTER 2024-09-03 09:57 | Outpatient (REF) | payer OTHER, SELFPAY ==
[2024-09-03 10:04] LABS: MANUAL DIFF FLAG NO
[2024-09-03 10:07] LABS: Basophils Percent Auto 0.9 % (0-2); Eosinophils Absolute Auto 0.2 X10*3/uL (0.0-0.4); Eosinophils Percent Auto 3.6 % (0-4); Hematocrit 37.9 % (37.0-47.0); Hemoglobin 12.9 g/dl (12.0-16.0); Imm Gran Abs Auto 0.02 X10*3/uL (0.00-0.03); Imm Gran Pct Auto 0.4 % (0.0-0.4); Lymphocytes Absolute Auto 1.6 X10*3/uL (1.2-4.9); Lymphocytes Percent Auto 35.5 % (20-40); Mean Corpuscular Hemoglobin 30.4 pg (27.0-33.0); Mean Corpuscular Volume 89.2 fL (80.0-98.0); Mean Platelet Volume 10.4 fL (9.4-12.3); Monocytes Absolute Auto 0.4 X10*3/uL (0.1-1.2); Monocytes Percent Auto 9.8 % (2-11); Neutrophils Absolute Auto 2.2 x10*3/uL (2.0-8.3); Neutrophils Percent Auto 49.8 % (45-73); Platelet Count 228 X10*3/uL (160-400); Red Blood Count 4.25 X10*6/uL (4.20-5.50); White Blood Count 4.5 X10*3/uL (4.8-10.8)
[2024-09-03 10:31] LABS: Estimated Average Glucose 103 mg/dL; Hemoglobin A1C 110.4204 umol/L; Hemoglobin A1c % 5.2 % (<6.0); Total Hemoglobin (HGBA1C) 3352.1449 umol/L
[2024-09-03 11:14] LABS: Alanine Aminotransferase 18 U/L (0-31); Albumin Level 4.4 g/dL (3.5-5.0); Alkaline Phosphatase 52 U/L (39-117); Anion Gap 10 (12-20); Aspartate Amino Transferase 15 U/L (5-31); Blood Urea Nitrogen 13 mg/dL (9-16); Calcium 9.5 mg/dL (8.4-10.2); Carbon Dioxide 26 mmol/L (22-29); Chloride 108 mmol/L (96-108); Cholesterol 157 mg/dL (<200); Estimated Glomerular Filt Rate > 60; Glucose Fasting 99 mg/dL (60-99); HDL Cholesterol 45 mg/dL (>40); LDL Cholesterol Calculated 98 mg/dL (<100); Potassium 4.2 mmol/L (3.3-5.1); Sodium 140 mmol/L (135-145); Total Protein 6.7 g/dL (6.5-8.0); Triglycerides 70 mg/dL (<150)
== END 2024-09-03 09:58 | disposition home or self-care (01) ==
LOC: HO.LAB 09:57
PROVIDERS: Visit Provider Internal Medicine
DX: Z00.00 Encounter for general adult medical examination without abnormal findings (principal); D64.9 Anemia, unspecified; E55.9 Vitamin D deficiency, unspecified; E11.9 Type 2 diabetes mellitus without complications
CPT/HCPCS: 36415; 80053; 80061; 82306; 83036; 85025

== ENCOUNTER 2024-09-29 12:32 | Outpatient (AMB) | payer OTHER, SELFPAY ==
--- NOTE | 2024-09-29 12:44 | A.OFFVIS_ITS ---
VS Expanded 09/29/24 13:13 Height 5 ft 7 in Weight 169 lb 15.622 oz BMI 26.6 Intake Visit Reasons: IFG Allergies pollen Allergy (Intermediate, Uncoded 08/10/24 16:27) upper respiratory issues Nutrition Presentation Details: Pt presents for MNT f/u for pre DM working on diet modifications challenges during this past week r/t change in schedule/meal routine/fam celebration BS Monitoring Most Recent Diabetes Results: Cholesterol 157 mg/dL (<200) 09/03/24 HDL Cholesterol 45 mg/dL (>40) 09/03/24 Triglycerides 70 mg/dL (<150) 09/03/24 Creatinine 0.71 mg/dL (0.5-1.4) 09/03/24 Blood Urea Nitrogen 13 mg/dL (9-16) 09/03/24 Sodium 140 mmol/L (135-145) 09/03/24 Potassium 4.2 mmol/L (3.3-5.1) 09/03/24 Chloride 108 mmol/L (96-108) 09/03/24 Carbon Dioxide 26 mmol/L (22-29) 09/03/24 Calcium 9.5 mg/dL (8.4-10.2) 09/03/24 AST 15 U/L (5-31) 09/03/24 ALT 18 U/L (0-31) 09/03/24 Total Protein 6.7 g/dL (6.5-8.0) 09/03/24 Albumin 4.4 g/dL (3.5-5.0) 09/03/24 [facility] Medical History (Updated 08/24/24 @ 13:23 by Zackary Michel MD) Sacrococcygeal pilonidal cyst Low back pain Ganglion cyst DEE DEE positive Hip osteoarthritis Leukopenia Hypovitaminosis D Physical exam Renal calculi Vertigo Ovarian cyst Endometriosis Migraine headache Surgical History History of hysterectomy Family History Mother Diabetes mellitus Father Essential hypertension Renal cancer Family/Other Mental health disorder Substance use disorder Social History (Updated 08/10/24 @ 16:31 by Dee Dee Chaidez MD) Household Members: Spouse and Children Housing: House Are you a primary technical healthcare consultant to a significant other at home: No Do you presently have visiting nurse or other home services: No Alcohol intake: current Alcohol intake frequency: holidays/special occasions only Alcohol type: wine and hard liquor Patient Tobacco Use Status: Never used Tobacco e-Cigarette/Vaping Use: Never Used Second Hand Smoke Exposure: No Substance Use Type: Marijuana service: No Current occupational status: employed Current occupational exposures/hazards: No Sexual orientation: Straight/Heterosexual Gender identity: Female Cognitive needs: No Hearing needs: No Vision needs: Yes Female Reproductive History Menstrual Age of Menarche: 10 Assessment & Plan Assessment & Plan (1) Impaired glucose tolerance: Code(s): R73.02 - Impaired glucose tolerance (oral) Category: Medical Plan: Wt: 74.5 Kg ( ) Est kcal needs as per MSJ: 2000 (40% carb, 30% protein/fat) Est fluid needs as per 25-30 ml/d: 2200 Est prot per day as per 1 g/kg bw: 75 /25mmend fiber intake : 8-10 g per day and gradually increase to 25-28 g per day for women and 35-38 g for men or as tolerated Recommend sodium intake per day : less than 2000 mg Educated patient on: ( R = reviewed V = verbalizes understanding N/R = needs review N/A = not applicable * Food sources of carbohydrate, adequate serving sizes and its role in various health conditions: R * Differences between complex carbohydrates a simple carbohydrates, role of fiber in diet: R * Lean protein sources of foods: R * Differences between types of fats and role in diet (mono on saturated fat fatty acids, saturated fatty acids, trans fats): R basic/general * Food sources of sodium in salt and healthy modifications for heart health in kidney health: R V R/V * Vitamins and minerals: R V N/R * Healthy plate method concept: R * Physical activity: Benefits a precaution: R V N/R * Hypoglycemia protocol (rule of 15): R V N/R * Dietary prevention of Hyperglycemia: R * ETOH: calories/BG effects: R Patient Instructions: Resume meal schedule/portion control protein portion size 3-4 oz serving (lean beef/poultry/fish/eggs/yogurt/milk/legumes keep hydrated by having water with meals/snacks Coding Level of Care Code Nutr Indiv Subseq (71674) Diagnoses Impaired glucose tolerance R73.02 Time Spent (min) 30
[2024-09-29 13:13] VITALS: BMI 26.6
--- OUTSIDE RECORDS SUMMARY | 2024-09-29 13:13 | XMS_ITS | Data Portability ---
Author Organization [place] - [facility], Allergy Address [address] [address] Care Team Providers Care Assessment Coordinator Name Role Phone NATALIO BOLTON Primary Care [...] Organization Details Recorded Time Acute pansinusit is 5353769 Active 2022 Acute pansinusi tis, unspecifi ed; Note: Date Diagnosed : 11/08/2022 2:48 PM (J01.40) [facility] 4 03:25:13 Deviated nasal septum 989250106 Active 2022 Deviated nasal septum; Note: Date Diagnosed : 11/08/2022 2:48 PM (J34.2) Not Available [facility] 4 03:25:13 Allergic rhinitis 57944492 Active 2022 Allergic Rhinitis; Note: Date Diagnosed : 3 2:52 PM (477.9) Note: Date Diagnosed : 3 2:52 PM (477.9) Allergi c rhinitis, unspecifi ed; Note: Date Diagnosed : 11/08/2022 2:51 PM (J30.9) Note: Date Diagnosed : 11/08/2022 2:51 PM (J30.9) ; Start Date : 3 JOSELUIS PORTER MD [address] [place] [address], [facility] [place], [address] , [facility] - [facility] 4 16:23:17 Snoring 17877139 Active 2022 Snoring; Note: Date Diagnosed : 11/08/2022 2:48 PM (R06.83) Not Available [facility] 4 03:25:13 Problem Notes None recorded. Medical Equipment None Reported. [...] 600 mg capsule active Medicatio n ID: [id number] Br and Name: apple cider vinegar S [...] Updated DateTime 10/07/2023 170.18 cm 25.1 kg/m2 14460.78 g Serena Smith [place] - [facility] 10/07/2023 16:16:00 Social History None recorded. 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 mucosal thickening in bilateral frontal, max and ethmoid sinus with no complete opacification. possible air fluid left in left max sinusworks running blood bank at [place] JOSELUIS PORTER MD [address] [facility],[address], [address], [place] - [facility] 10/07/2023 16:30:10 OBGyn Episode No OBEpisode recorded.
== END 2024-09-29 13:31 | disposition home or self-care (01) ==
LOC: HO.ENCR 12:33
PROVIDERS: PCP Internal Medicine; Visit Provider Dietitian, Registered
DX: R73.02 Impaired glucose tolerance (oral) (principal)

== ENCOUNTER → 2024-09-29 12:32 | Outpatient (BNVA) | payer OTHER, SELFPAY | PROVIDERS: PCP Internal Medicine; Visit Provider Dietitian, Registered | DX: R73.02 Impaired glucose tolerance (oral) (principal); Z71.3 Dietary counseling and surveillance | CPT/HCPCS: 97803 ==

== ENCOUNTER 2024-10-05 06:01 | Day surgery (SDC) | payer OTHER, SELFPAY ==
--- OUTSIDE RECORDS SUMMARY | 2024-09-15 11:02 | XMS_ITS | Data Portability ---
Author Organization [place] - [facility], Allergy Address [address] [address] Care Team Providers Care Hospice Clinical Supervisor Name Role Phone NATALIO BOLTON Primary Care Provider [phone] Assessment Encounter Date Assessment Date Assessment LastModified [...] Organization Details Recorded Time Acute pansinusit is 3248336 Active 2022 Acute pansinusi tis, unspecifi ed; Note: Date Diagnosed : 11/08/2022 2:48 PM (J01.40) [facility] 4 03:25:13 Deviated nasal septum 913506559 Active 2022 Deviated nasal septum; Note: Date Diagnosed : 11/08/2022 2:48 PM (J34.2) Not Available [facility] 4 03:25:13 Allergic rhinitis 13105880 Active 2022 Allergic Rhinitis; Note: Date Diagnosed : 3 2:52 PM (477.9) Note: Date Diagnosed : 3 2:52 PM (477.9) Allergi c rhinitis, unspecifi ed; Note: Date Diagnosed : 11/08/2022 2:51 PM (J30.9) Note: Date Diagnosed : 11/08/2022 2:51 PM (J30.9) ; Start Date : 3 JOSELUIS PORTER MD [address] [place] [address],[place] [address], [place], [phone] , [facility] 4 16:23:17 Snoring 50132130 Active 2022 Snoring; Note: Date Diagnosed : 11/08/2022 2:48 PM (R06.83) Not Available [facility] 4 03:25:13 Problem Notes None recorded. Procedures Surgical History None recorded. Imaging Results Imaging Date Name Status LastModified by [facility] Details LastModified Time 06/19/2022 imaging/diag [...] 600 mg capsule active Medicatio n ID: [id number] Br and Name: apple cider vinegar S [...] Updated DateTime 10/07/2023 170.18 cm 25.1 kg/m2 10220.78 g Serena Luis [place] - [facility] 10/07/2023 16:16:00 Social History None recorded. Functional [...] Note 2768 JOSELUIS PORTER MD [facility] of [address] [address] 10/07/2023 16:00:50 10/07/2023 16:47:58 Allergic rhinitis 11995390 J30.9 Health Concerns Section Related Observation LastModified by Organization Detai ls LastModified Time None Recorded Concern Status LastModified by Organization Details LastModified Time None Recorded Advance Directives Directive None Recorded Payers Insurance Date Sequence Insurance Name Policy Number Policy Chavez Covered Member ID Chavez Member ID Guarantor Name 05/10/2024 1 BLUE BENEFIT [employer]MIN[employer] OF [facility] ([facility]) [id number] Addis Lugoi [id number] Addis Julien Anand Notes Date Note Type Note Provider Name and Address Organization Details Recorded Time 4 text/html allergy testing 01/29/23multiple sensitivities significantinitiated SLIT 04/2023feels her seasonal allergies were better controlled this spring - 80% improved ct sinus [place] 06/19/22 - septum spur to left. mucosal thickening in bilateral frontal, max and ethmoid sinus with no complete opacification. possible air fluid left in left max sinusworks running blood bank at [place] JOSELUIS PORTER MD [address] [place] [address], [phone], [place] - [facility] 10/07/2023 16:30:10 OBGyn Episode No OBEpisode recorded.
[2024-10-01 14:30] VITALS: BMI 25.8
--- NOTE | 2024-10-04 11:49 | HO.ANESPROP2 ---
Documented by User: Michelle Perez NP 10/04/24 11:50 HPI - Anesthesia Eval Consult details Narrative: 44yo F for Excision of Pilonidal Cyst Sacrococcygeal Area PMFSH Active Problems Active Problems: All Active Problems Sacrococcygeal pilonidal cyst (Acute) Premenopausal patient (Acute) Menopausal symptoms (Acute) Impaired glucose tolerance (Acute) Tarlov cyst (Acute) Sacral pain (Acute) Pelvic pain (Acute) Otitis media (Acute) Physical exam (Acute) Low back pain (Acute) DEE DEE positive (Acute) Hip osteoarthritis (Acute) Leukopenia (Acute) Hypovitaminosis D (Acute) Renal calculi (Acute) Mixed incontinence (Acute) Past Medical History Medical History (Updated 08/24/24 @ 13:23 by Zackary Michel MD) Sacrococcygeal pilonidal cyst Low back pain Ganglion cyst DEE DEE positive Hip osteoarthritis Leukopenia Hypovitaminosis D Physical exam Renal calculi Vertigo Ovarian cyst Endometriosis Migraine headache Family History Family History Mother Diabetes mellitus Father Essential hypertension Renal cancer Family/Other Mental health disorder Substance use disorder Surgical History Surgical History History of hysterectomy Social History Social History (Updated 08/10/24 @ 16:31 by Dee Dee Chaidez MD) Household Members: Spouse and Children Housing: House Are you a primary intensive care specialist to a significant other at home: No Do you presently have visiting nurse or other home services: No Alcohol intake: current Alcohol intake frequency: holidays/special occasions only Alcohol type: wine and hard liquor Patient Tobacco Use Status: Never used Tobacco e-Cigarette/Vaping Use: Never Used Second Hand Smoke Exposure: No Use of substances other than those prescribed or required for medical reasons: No Substance Use Type: Marijuana Are you DNR?: No Advance Directives: No Advance Directives Information Provided: Yes service: No Current occupational status: employed Current occupational exposures/hazards: No Sexual orientation: Straight/Heterosexual Gender identity: Female Cognitive needs: No Hearing needs: No Vision needs: Yes Meds Allergies Allergy/AdvReac Type Severity Reaction Status Date / Time pollen Allergy Intermediate upper Uncoded 10/05/24 06:31 respiratory issues Home Medications ?Medication ?Instructions ?Recorded ?Confirmed ?Last Taken ?Type multivitamin 1 tab PO BID 08/01/21 10/05/24 Unknown History naproxen sodium 220 mg tablet 440 mg PO BID PRN Pain 08/01/21 10/05/24 Unknown History (Aleve) melatonin 5 mg capsule 5 mg PO DAILY PRN insomnia 08/05/23 10/05/24 Unknown History Exam Height,Weight and Vital Signs: Height 5 ft 7 in Weight 74.843 kg Assessment and Plan Assessment Anesthesia Assessment: Chart Reviewed Documented by User: Nathaniel Herr MD 10/05/24 14:03 PMF Past Medical History Medical History (Updated 08/24/24 @ 13:23 by Zackary Michel MD) Sacrococcygeal pilonidal cyst Low back pain Ganglion cyst DEE DEE positive Hip osteoarthritis Leukopenia Hypovitaminosis D Physical exam Renal calculi Vertigo Ovarian cyst Endometriosis Migraine headache Family History Family History Mother Diabetes mellitus Father Essential hypertension Renal cancer Family/Other Mental health disorder Substance use disorder Family history of problems with anesthesia: No Surgical History Surgical History History of hysterectomy History of Problems with Anesthesia: No Social History Social History (Updated 08/10/24 @ 16:31 by Dee Dee Chaidez MD) Household Members: Spouse and Children Housing: House Are you a primary intensive care specialist to a significant other at home: No Do you presently have visiting nurse or other home services: No Alcohol intake: current Alcohol intake frequency: holidays/special occasions only Alcohol type: wine and hard liquor Patient Tobacco Use Status: Never used Tobacco e-Cigarette/Vaping Use: Never Used Second Hand Smoke Exposure: No Use of substances other than those prescribed or required for medical reasons: No Substance Use Type: Marijuana Are you DNR?: No Advance Directives: No Advance Directives Information Provided: Yes service: No Current occupational status: employed Current occupational exposures/hazards: No Sexual orientation: Straight/Heterosexual Gender identity: Female Cognitive needs: No Hearing needs: No Vision needs: Yes Meds Allergies Allergy/AdvReac Type Severity Reaction Status Date / Time pollen Allergy Intermediate upper Uncoded 10/05/24 06:31 respiratory issues Home Medications ?Medication ?Instructions ?Recorded ?Confirmed ?Last Taken ?Type multivitamin 1 tab PO BID 08/01/21 10/05/24 Unknown History naproxen sodium 220 mg tablet 440 mg PO BID PRN Pain 08/01/21 10/05/24 Unknown History (Aleve) melatonin 5 mg capsule 5 mg PO DAILY PRN insomnia 08/05/23 10/05/24 Unknown History Exam Airway Mallampati Class: I TM Dist: >3cm Neck ROM: Full Loose/Missing/Broken Teeth: No Assessment and Plan Assessment Anesthesia Assessment: Anesthesia Plan Discussed Final Anesthetic Review Family History of Problems with Anesthesia: No History of Problems with Anesthesia: No NPO: Yes ASA Class: II Final Preanesthetic Review: No Changes in Pt Med Stat, Meds/Allgs Chart Reviewed, Consent Obtained/Reviewed and Anes Risks/Benef Reviewed Patient Risk: Low Procedure Risk: Low Anesthetic Plan Anesthetic Plan: GA Disposition: Standard PACU
[2024-10-05] VITALS (7 sets, daily range): BP systolic 114–130; BP diastolic 72–77; PULSE 59–80; RESP 12–16; TEMP 36.4–36.6; O2SAT 95–100
[2024-10-05] MEDS: Lactated Ringers 1,000 ML 100 ML IVCONT (07:13)
--- NOTE | 2024-10-05 07:14 | MHC.SHP ---
Pre-Procedural Eval Section A - 24 Hr Update-Section A only Date of Service: 10/05/24 Section B - Complete if H&P > 30 days Chief Complaint: Pilonidal cyst without abscess Details of Present Illness: Has persistent induration drainage on the sacrococcygeal area consistent with a pilonidal cyst Relevant Family History (Specify if Yes): No Relevant Social History: None Present Medications: see Short Stay Collaborative assessment Medical History: Significant History (Osteoarthritis) Allergies: Allergies Allergy/AdvReac Type Severity Reaction Status Date / Time pollen Allergy Intermediate upper Uncoded 10/05/24 06:31 respiratory issues Review of Systems Sugical H&P ROS: Negative: Constitution, Cardiovascular and Respiratory Exam Surgical H&P Exam: Normal: Heart, Normal: Lungs and Normal: Abdomen Exam Comment: Midline pits in the gluteal cleft consistent with pilonidal disease Plan Diagnosis/Plan: Unchanged I have reviewed the history and physical and performed a pertinent physical examination on my patient. No changes have occurred unless specified. Time Spent With Patient Time: Total time managing care of this patient today ____ minutes.
[2024-10-05] MEDS: ceFAZolin Sodium/Dextrose,Iso 2 GM/50 ML PIGGYBACK IV (07:55)
--- NOTE | 2024-10-05 08:15 | W.PM.OPN ---
Operative Note Operative Note Date of Service: 10/05/24 Narrative: Preop diagnosis: Pilonidal cyst, sacrococcygeal area Postop diagnosis: The same Procedure: Excision of pilonidal cyst, sacrococcygeal area Surgeon: Zackary Michel MD public health training assistant: RANDY Poole The patient is a 44-year-old female who has had this recurrent area of pain and swelling on the sacrococcygeal region consistent with a pilonidal cyst. She understood the technique of excision under anesthesia and she was aware of the risks, benefits, and alternatives. She was brought to the operating room and placed in prone position under general anesthesia via laryngeal mask airway. The sacrococcygeal area was prepped and draped in the usual sterile fashion. A surgical time-out was done. The patient received cefazolin 2 g IV preoperatively There was note of an area of induration in the gluteal cleft in the midline. There was no obvious fluctuance or sinus. There was some shallow midline pits I infiltrated the planned line of incision with lidocaine 1%. I made an elliptical incision of the skin surrounding this induration with a blade 15. This was carried down through the full-thickness of the skin and subcutaneous fat. I used electrocautery to excise this entire area including the deep subcutaneous fat to make sure that we had excised all diseased tissue. The area excised was about 3 cm x 2 cm in tension. I cauterized oozing areas for hemostasis. I irrigated. I undermined subcutaneous tissue on both side to create thick flaps and allow closure without tension I reapposed the deep subcutaneous tissue with Polysorb 3-0 simple interrupted sutures. Skin closure was achieved with nylon 3-0 vertical mattress sutures alternating with simple interrupted sutures. The area was then infiltrated with Marcaine 0.5% for postop analgesia. Dressings were applied. The procedure was completed The patient tolerated the procedure well. There were no immediate complications. Initial and final counts of sponges and instruments were correct. Estimated blood loss was about less than 10 cc. The patient was extubated without difficulty and transferred to the recovery room with stable vital signs.
== END 2024-10-05 09:46 | disposition home or self-care (01) ==
PROVIDERS: PCP Internal Medicine; Visit Provider Surgery
PROC: (CPT 11771; principal; 2024-10-05 07:30)
DX: L05.91 Pilonidal cyst without abscess (principal); J30.1 Allergic rhinitis due to pollen; N20.0 Calculus of kidney; N80.9 Endometriosis, unspecified; N83.209 Unspecified ovarian cyst, unspecified side; E55.9 Vitamin D deficiency, unspecified; D72.819 Decreased white blood cell count, unspecified; R76.0 Raised antibody titer; G43.909 Migraine, unspecified, not intractable, without status migrainosus; Z79.1 Long term (current) use of non-steroidal anti-inflammatories (NSAID); Z79.899 Other long term (current) drug therapy; Z90.710 Acquired absence of both cervix and uterus
CPT/HCPCS: 11771; 88304; J0690; J1100; J1885; J2003; J2405; J2704; J2795; J3010

== ENCOUNTER → 2024-10-05 06:01 | Outpatient (BNV) | payer OTHER, SELFPAY | PROVIDERS: PCP Internal Medicine; Visit Provider Surgery | DX: L05.91 Pilonidal cyst without abscess (principal) | CPT/HCPCS: 11771 ==

== ENCOUNTER 2024-10-14 12:28 | Outpatient (REF) | payer OTHER, SELFPAY ==
--- OUTSIDE RECORDS SUMMARY | 2024-10-14 14:25 | XMS_ITS | Data Portability ---
Author Organization [place] - [facility], Allergy Address [address] [address] Care Team Providers Care Alterations Workroom Clerk Name Role Phone NATALIO BOLTON Primary [...] Organization Details Recorded Time Acute pansinusit is 0211517 Active 2022 Acute pansinusi tis, unspecifi ed; Note: Date Diagnosed : 11/08/2022 2:48 PM (J01.40) Not Available [facility] 4 03:25:13 Deviated nasal septum 770787888 Active 2022 Deviated nasal septum; Note: Date Diagnosed : 11/08/2022 2:48 PM (J34.2) Not Available [facility] 4 03:25:13 Allergic rhinitis 27985270 Active 2022 Allergic Rhinitis; Note: Date Diagnosed : 3 2:52 PM (477.9) Note: Date Diagnosed : 3 2:52 PM (477.9) Allergi c rhinitis, unspecifi ed; Note: Date Diagnosed : 11/08/2022 2:51 PM (J30.9) Note: Date Diagnosed : 11/08/2022 2:51 PM (J30.9) ; Start Date : 3 JOSELUIS PORTER MD [address] [place] [address], [facility] [place], [address] , [facility] - [facility] 4 16:23:17 Snoring 05673661 Active 2022 Snoring; Note: Date Diagnosed : 11/08/2022 2:48 PM (R06.83) Not Available [facility] 4 03:25:13 Problem Notes None recorded. Medical [...] 600 mg capsule active Medicatio n ID: [id number] Br and Name: apple cider vinegar S [...] Updated DateTime 10/07/2023 170.18 cm 25.1 kg/m2 51706.78 g Serena Smith [place] - [facility] 10/07/2023 16:16:00 Social History None recorded. 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 mucosal thickening in bilateral frontal, max and ethmoid sinus with no complete opacification. possible air fluid left in left max sinusworks running blood bank at [place] JOSELUIS PORTER MD 100 [facility],[address], [address], [place] - [facility] 10/07/2023 16:30:10 OBGyn Episode No OBEpisode recorded.
== END 2024-10-14 12:29 | disposition home or self-care (01) ==
LOC: HO.MAMMO 12:28
PROVIDERS: PCP Internal Medicine; Visit Provider Internal Medicine
DX: Z12.31 Encounter for screening mammogram for malignant neoplasm of breast (principal)
CPT/HCPCS: 77063; 77067

== ENCOUNTER → 2024-10-14 12:30 | Outpatient (BNV) | payer OTHER, SELFPAY | PROVIDERS: PCP Internal Medicine; Visit Provider Internal Medicine | DX: Z12.31 Encounter for screening mammogram for malignant neoplasm of breast (principal) | CPT/HCPCS: 77063; 77067 ==

== ENCOUNTER 2024-10-18 09:02 | Outpatient (AMB) | payer OTHER, SELFPAY ==
--- NOTE | 2024-10-18 09:07 | A.OFFVIS_ITS ---
Vital Signs 10/18/24 09:14 Height 5 ft 7 in Weight 163 lb BMI 25.5 BP 136/85 Blood Pressure Location Lt brachial Position Sitting Pulse 95 Intake Visit Reasons: s/p pilonidal cyst Intake Note: Patient is seen in office for post op assessment post excision of pilonidal cyst sacrococcygeal area. Pt c/o: denies any concerns, minimal discomfort surgery:10/05/24 FM Unit Controller Required: No Accompanied by: Self / Same As Patient Allergies pollen Allergy (Intermediate, Uncoded 10/05/24 06:31) upper respiratory issues HPI HPI s/p pilonidal cyst: Details: Patient doing well. No concerns at this time. Endorses some discomfort when sleeping, feels the sutures pulling which is uncomfortable. Otherwise denies pain. Reports minimal drainage. Denies fever, chills PFSH Medical History (Updated 10/18/24 @ 09:23 by Phoenix Poole PA-C) Sacrococcygeal pilonidal cyst Low back pain Ganglion cyst DEE DEE positive Hip osteoarthritis Leukopenia Hypovitaminosis D Physical exam Renal calculi Vertigo Ovarian cyst Endometriosis Migraine headache Surgical History (Updated 10/14/24 @ 15:19 by LIVAN Schaffer) History of excision of pilonidal cyst (10/05/24) History of hysterectomy Family History Mother Diabetes mellitus Father Essential hypertension Renal cancer Family/Other Mental health disorder Substance use disorder Social History (Updated 08/10/24 @ 16:31 by Dee Dee Chaidez MD) Household Members: Spouse and Children Housing: House Are you a primary health care facilities inspector to a significant other at home: No Do you presently have visiting nurse or other home services: No Alcohol intake: current Alcohol intake frequency: holidays/special occasions only Alcohol type: wine and hard liquor Patient Tobacco Use Status: Never used Tobacco e-Cigarette/Vaping Use: Never Used Second Hand Smoke Exposure: No Substance Use Type: Marijuana service: No Current occupational status: employed Current occupational exposures/hazards: No Sexual orientation: Straight/Heterosexual Gender identity: Female Cognitive needs: No Hearing needs: No Vision needs: Yes Female Reproductive History Menstrual Age of Menarche: 10 Review of Systems Const All systems reviewed & are unremarkable except as noted in HPI and below Physical Exam Vital Signs: Last Vital Signs Pulse 95 10/18/24 09:14 BP 136/85 10/18/24 09:14 BMI result Body Mass Index 25.5 Const General: healthy appearing, comfortable and no acute distress Orientation/consciousness: patient oriented x3 Resp Effort & Inspection: normal respiratory effort and able to speak in complete sentences GI Other: Pilonidal cystectomy incision site appears to be healing well. Scant amounts of serous drainage. Four sutures in place. Incision looks clean dry and intact. No surrounding erythema, nontender Inspection: Yes normal to inspection Neuro General: patient oriented x3 Assessment & Plan Assessment & Plan (1) Sacrococcygeal pilonidal cyst: Comment: S/p pilonidal cystectomy Code(s): L05.91 - Pilonidal cyst without abscess Category: Medical Plan 44-year-old female s/p pilonidal cystectomy on 10/05/2024. Patient is doing well, reports minimal pain. Endorses some discomfort overnight, feels like the stitches are pulling. She denies fever, chills. Reports minimal discharge from the incision. On exam the incision appears to be healing well, no concerns for infection at this time. Four sutures were removed in office, patient tolerated this well. The wound was dressed with gauze for any drainage happens after suture removal. Recommended the patient keep the area clean and dry, she is okay to shower. Patient can follow-up in 2 weeks for 1 month postop visit. Patient can follow up sooner as needed for any concerns including increased pain, increased drainage, fever, chills. Surgical pathology as follows benign skin with fibrosis, inflammation, hemos iderin and few foreign body giant cells colon may represent area of previous pilonidal cyst Coding Level of Care Code Global (57899) Diagnoses Sacrococcygeal pilonidal cyst L05.91
[2024-10-18 09:14] VITALS: BP 136/85; PULSE 95; BMI 25.5
--- OUTSIDE RECORDS SUMMARY | 2024-10-18 09:38 | XMS_ITS | Data Portability ---
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 Role Phone NATALIO BOLTON Primary Care [...] Organization Details Recorded Time Acute pansinusit is 9222492 Active 2022 Acute pansinusi tis, unspecifi ed; Note: Date Diagnosed : 11/08/2022 2:48 PM (J01.40) Not Available [facility] 4 03:25:13 Deviated nasal septum 850075336 Active 2022 Deviated nasal septum; Note: Date Diagnosed : 11/08/2022 2:48 PM (J34.2) Not Available [facility] 4 03:25:13 Allergic rhinitis 48425838 Active 2022 Allergic Rhinitis; Note: Date Diagnosed : 3 2:52 PM (477.9) Note: Date Diagnosed : 3 2:52 PM (477.9) Allergi c rhinitis, unspecifi ed; Note: Date Diagnosed : 11/08/2022 2:51 PM (J30.9) Note: Date Diagnosed : 11/08/2022 2:51 PM (J30.9) ; Start Date : 3 JOSELUIS PORTER MD [address] [place] [address], [facility] [place], [address] , [facility] - [facility] 4 16:23:17 Snoring 42116489 Active 2022 Snoring; Note: Date Diagnosed : 11/08/2022 2:48 PM (R06.83) Not Available [facility] 4 03:25:13 Problem Notes None recorded. Medical [...] 600 mg capsule active Medicatio n ID: [id number] Br and Name: apple cider vinegar S [...] Updated DateTime 10/07/2023 170.18 cm 25.1 kg/m2 92014.78 g Serena Smith [place] - [facility] 10/07/2023 16:16:00 Social History None recorded. [...] Note 2768 JOSELUIS PORTER MD [facility] 100 [place] [address] 10/07/2023 16:00:50 10/07/2023 16:47:58 Allergic rhinitis [id number] J30.9 Health Concerns Section Related Observation LastModified by Organization Detai ls LastModified Time None Recorded Concern Status LastModified by Organization Details LastModified Time None Recorded Advance Directives Directive None Recorded Payers Insurance Date Sequence Insurance Name Policy Number Policy Chavez Covered Member ID Chavez Member ID Guarantor Name 05/10/2024 1 BLUE [employer]AT[employer] OF [facility] [id number] Addis Julien Liliana [id number] Addis Julienbill Michel Notes Date Note Type Note Provider Name and Address Organization Details Recorded Time 4 text/html allergy testing 01/29/23multiple sensitivities significantinitiated [facility] 04/2023feels her seasonal allergies were better controlled this spring - 80% improved ct sinus [place] 06/19/22 - septum spur to left. mucosal thickening in bilateral frontal, max and ethmoid sinus with no complete opacification. possible air fluid left in left max sinusworks running blood bank at [place] JOSELUIS PORTER MD [facility], [address], [place] - [facility] 10/07/2023 16:30:10 OBGyn Episode No OBEpisode recorded.
== END 2024-10-18 09:22 | disposition home or self-care (01) ==
LOC: HO.HGS 09:03
PROVIDERS: PCP Internal Medicine
DX: L05.91 Pilonidal cyst without abscess (principal)
CPT/HCPCS: 99024

== ENCOUNTER → 2024-10-18 09:02 | Outpatient (BNVA) | payer OTHER, SELFPAY | PROVIDERS: PCP Internal Medicine ==

== ENCOUNTER 2024-11-08 11:35 | Outpatient (AMB) | payer OTHER, SELFPAY ==
--- NOTE | 2024-11-08 11:48 | MHC.OFFVIS ---
Vital Signs 11/08/24 11:53 Height 5 ft 7 in Weight 168 lb BMI 26.3 BP 135/91 H Blood Pressure Location Lt brachial Position Sitting Pulse 83 Intake Visit Reasons: 2wk s/p pilonidal cyst Intake Note: Patient is seen in office for post op assessment post excision of a pilonidal cyst. 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 No fevers, chills. Wants to return to activity, primarily Core exercises PFSH Medical History Sacrococcygeal pilonidal cyst Low back pain Ganglion cyst NATALIO positive Hip osteoarthritis Leukopenia Hypovitaminosis D Physical exam Renal calculi Vertigo Ovarian cyst Endometriosis Migraine headache Surgical History History of excision of pilonidal cyst (10/05/24) History of hysterectomy Family History Mother Diabetes mellitus Father Essential hypertension Renal cancer Family/Other Mental health disorder Substance use disorder Social History Household Members: Spouse and Children Housing: House Are you a primary care team assistant to a significant other at home: No Do you presently have visiting nurse or other home services: No Alcohol intake: current Alcohol intake frequency: holidays/special occasions only Alcohol type: wine and hard liquor Patient Tobacco Use Status: Never used Tobacco e-Cigarette/Vaping Use: Never Used Second Hand Smoke Exposure: No Substance Use Type: Marijuana service: No Current occupational status: employed Current occupational exposures/hazards: No Sexual orientation: Straight/Heterosexual Gender identity: Female Cognitive needs: No Hearing needs: No Vision needs: Yes Female Reproductive History Menstrual Age of Menarche: 10 Review of Systems Const All systems reviewed & are unremarkable except as noted in HPI and below Physical Exam Vital Signs: Last Vital Signs Pulse 83 11/08/24 11:53 BP 135/91 H 11/08/24 11:53 BMI result Body Mass Index 26.3 Const General: comfortable and no acute distress Orientation/consciousness: patient oriented x3 GI Other: Gluteal cleft incision site appears to be healing well. No areas of opening, nontender, no discharge Neuro General: patient oriented x3 Assessment & Plan Assessment & Plan (1) Sacrococcygeal pilonidal cyst: Comment: S/p pilonidal cystectomy Code(s): L05.91 - Pilonidal cyst without abscess Category: Medical Plan 44-year-old female presenting to the office status post pilonidal cystectomy on 10/04/2024 returning for routine follow-up. Patient is doing well, not having any pain, no discharge. On exam the incision site appears to be healing well there are no areas of open wound, no surrounding erythema and nontender to palpation. Patient is okay to resume activity as tolerated, I recommended that she start with half of her baseline activity level and slowly work up while listening to her body for any recurrence of symptoms. I recommended using extra padding when doing workouts that would involve sitting. At this point patient no longer requiring routine follow up. She can follow up as needed for any concerns in the future Coding Level of Care Code Global (53492) Diagnoses Sacrococcygeal pilonidal cyst L05.91
[2024-11-08 11:53] VITALS: BP 135/91; PULSE 83; BMI 26.3
--- OUTSIDE RECORDS SUMMARY | 2024-11-08 12:30 | XMS_ITS | Data Portability ---
Author Organization [place] - [facility], Allergy Address [address] [address] Care Team Providers Care Baseball Umpire [employer] Name Role Phone NATALIO BOLTON Primary Care [...] Organization Details Recorded Time Acute pansinusit is 5608719 Active 2022 Acute pansinusi tis, unspecifi ed; Note: Date Diagnosed : 11/08/2022 2:48 PM (J01.40) Not Available [facility] 08/02/202 4 03:25:13 Deviated nasal septum 997868481 Active 2022 Deviated nasal septum; Note: Date Diagnosed : 11/08/2022 2:48 PM (J34.2) Not Available [facility] 4 03:25:13 Allergic rhinitis 99294267 Active 2022 Allergic Rhinitis; Note: Date Diagnosed : 3 2:52 PM (477.9) Note: Date Diagnosed : 3 2:52 PM (477.9) Allergi c rhinitis, unspecifi ed; Note: Date Diagnosed : 11/08/2022 2:51 PM (J30.9) Note: Date Diagnosed : 11/08/2022 2:51 PM (J30.9) ; Start Date : 3 JOSELUIS PORTER MD [address] [place] [address], [place], [address] , [facility] 4 16:23:17 Snoring 27707503 Active 2022 Snoring; Note: Date Diagnosed : 11/08/2022 2:48 PM (R06.83) Not Available [facility] 4 03:25:13 Problem Notes None recorded. [...] 600 mg capsule active Medicatio n ID: [id number] Br and Name: apple cider vinegar S [...] Updated DateTime 10/07/2023 170.18 cm 25.1 kg/m2 74068.78 g Serena Luis [place] - [facility] 10/07/2023 16:16:00 Social History None recorded. [...] Note 2768 JOSELUIS PORTER MD [facility] 100 [place] [address] 10/07/2023 16:00:50 10/07/2023 16:47:58 Allergic rhinitis 44152820 J30.9 Health Concerns Section Related Observation LastModified by Organization Detai ls LastModified Time None Recorded Concern Status LastModified by Organization Details LastModified Time None Recorded Advance Directives Directive None Recorded Payers Insurance Date Sequence Insurance Name Policy Number Policy Chavez Covered Member ID Chvaez Member ID Guarantor Name 05/10/2024 1 [employer]UE [employer] OF [facility] [id number] Addis Julien Liliana [id number] Addis Julienbill Michel Notes Date Note Type Note Provider Name and Address Organization Details Recorded Time 4 text/html allergy testing 01/29/23multiple sensitivities significantinitiated [facility] 04/2023feels her seasonal allergies were better controlled this spring - 80% improved ct sinus [place] 06/19/22 - septum spur to left. mucosal thickening in bilateral frontal, max and ethmoid sinus with no complete opacification. possible air fluid left in left max sinusworks running blood bank at [place] JOSELUIS PORTER MD 100 [facility] [address], [place], [address], [facility] - [facility] 10/07/2023 16:30:10 OBGyn Episode No OBEpisode recorded.
== END 2024-11-08 12:00 | disposition home or self-care (01) ==
LOC: HO.HGS 11:36
PROVIDERS: PCP Internal Medicine
DX: L05.91 Pilonidal cyst without abscess (principal)
CPT/HCPCS: 99024

== ENCOUNTER 2024-11-09 08:33 | Outpatient (AMB) | payer OTHER, SELFPAY ==
--- NOTE | 2024-11-09 08:38 | MHC.OFFVIS ---
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 Patient reports on 09/03/24 she woke up and had gotten out of her daughters dorm bed and had instant pain. Denies any traumatic injury. She also complains of swelling however this is relieved with icing. Her pain is located at the anterior/medial aspect of pain. No numbness or tingling. States her pain presents with getting up and moving, after she is active her pain is better. 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 She states around 09/03/24 she was getting out of a bed and put her foot down and she felt pain in the left knee. She does not recall any injury or pop etc. Since the onset, she states there is pain after getting up from a sitting position. Sitting in the car for a long period of time is uncomfortable. She has noticed swelling with the initial onset of pain, but since then it has not swelled up. She has some discomfort with stairs. She states she was riding her bike and she felt pain in the left leg. No other treatment to date. [facility] Medical History Sacrococcygeal pilonidal cyst Low back pain Ganglion cyst NATALIO positive Hip osteoarthritis Leukopenia Hypovitaminosis D Physical exam Renal calculi Vertigo Ovarian cyst Endometriosis Migraine headache Surgical History History of excision of pilonidal cyst (10/05/24) History of hysterectomy Family History Mother Diabetes mellitus Father Essential hypertension Renal cancer Family/Other Mental health disorder Substance use disorder Social History Household Members: Spouse and Children Housing: House Are you a primary gericare aide teacher to a significant other at home: No Do you presently have visiting nurse or other home services: No Alcohol intake: current Alcohol intake frequency: holidays/special occasions only Alcohol type: wine and hard liquor Patient Tobacco Use Status: Never used Tobacco e-Cigarette/Vaping Use: Never Used Second Hand Smoke Exposure: No Substance Use Type: Marijuana service: No Current occupational status: employed Current occupational exposures/hazards: No Sexual orientation: Straight/Heterosexual Gender identity: Female Cognitive needs: No Hearing needs: No Vision needs: Yes Female Reproductive History Menstrual Age of Menarche: 10 Review of Systems Const All systems reviewed & are unremarkable except as noted in HPI and below Physical Exam Vital Signs: BMI result Body Mass Index 26.3 Const General: cooperative and no acute distress Orientation/consciousness: patient oriented x3 Resp Effort & Inspection: normal respiratory effort and able to speak in complete sentences Cardio Peripheral pulses: Peripheral pulses 2+ throughout Neuro General: patient oriented x3 Extrem Other: Left knee is normal to inspection she has no erythema or joint effusion. She has full range of motion with medial joint line tenderness. Positive Bonita's medially. Calf is supple and nontender neurovascularly intact. Results Reviewed Results Reviewed: X-rays of both knees obtained in the office today and reviewed by me are negative for any acute abnormalities. Assessment & Plan Assessment & Plan (1) Patellofemoral arthritis of left knee: Code(s): M17.12 - Unilateral primary osteoarthritis, left knee Category: Medical Plan: We discussed options today which includes physical therapy to work on strength and conditioning of the knee. I explained this will also benefit her hip pain. She will gradually increase activities as tolerated. She was fit for a Genumed knee brace in the office today. If symptoms persist or worsen and she continues to have catching locking in the knee she will contact me to order an MRI of the left knee otherwise she will follow up as needed. Orders: Orders PT Evaluation and Treatment Today M17.12 - Unilateral primary osteoarthritis, left knee XR knee LT 2V Today M25.562 - Pain in left knee Coding Level of Care Code New Pt Level 3 (04291) Complex EM visit Add On G2211 Diagnoses Patellofemoral arthritis of left knee M17.12
[2024-11-09 08:49] VITALS: BMI 26.3
== END 2024-11-09 09:32 | disposition home or self-care (01) ==
PROVIDERS: PCP Internal Medicine; Visit Provider Physician Assistant
DX: M17.12 Unilateral primary osteoarthritis, left knee (principal)
CPT/HCPCS: 99203

== ENCOUNTER 2024-11-09 08:47 | Outpatient (REF) | payer OTHER, SELFPAY ==
--- NOTE | ~2024-11-09 | XR_ITS ---
CLINICAL HISTORY: M17.11 - Unilateral primary osteoarthritis, right knee --- Additional Notes or Special Instructions: AP standing, lateral 2 view right knee Comparison: None provided Findings: No fractures or dislocations. No significant loss of joint space, osteophytes, or erosions. No joint effusion. No radiopaque foreign body. IMPRESSION: 1. No acute findings. This document has been electronically signed by: Miguelito Lopez MD on 11/09/2024 20:06:35
--- NOTE | ~2024-11-09 | XR_ITS ---
CLINICAL HISTORY: M25.562 - Pain in left knee 2 view left knee Comparison: DX - XR KNEE RT 2V - 11/09/24 08:38 EDT Findings: Bones intact. No dislocations. No significant arthritic change or erosions. No joint effusion. No radiopaque foreign body. IMPRESSION: 1. No acute findings. This document has been electronically signed by: Miguelito Lopez MD on 11/09/2024 20:05:57
== END 2024-11-09 08:48 | disposition home or self-care (01) ==
LOC: HO.HOSX 08:47
PROVIDERS: Visit Provider Physician Assistant
DX: M17.12 Unilateral primary osteoarthritis, left knee (principal); M25.562 Pain in left knee; Z79.899 Other long term (current) drug therapy
CPT/HCPCS: 73560

== ENCOUNTER → 2024-11-09 08:48 | Outpatient (BNV) | payer OTHER, SELFPAY | PROVIDERS: Visit Provider Student in an Organized Health Care Education/Training Program | DX: M17.0 Bilateral primary osteoarthritis of knee (principal) | CPT/HCPCS: 73560 ==

== ENCOUNTER 2025-01-25 10:00 | Outpatient (RCR) | payer OTHER, SELFPAY ==
--- NOTE | 2024-12-21 14:48 | MHC.PT.EP ---
[facility] [place] Office [place] Office [place] Office [address] Nanda Colon [address] [phone] F: [phone] F: [phone] F: [phone] F: [phone] Physical Therapy Plan of Care Date of Evaluation: 12/21/24 Date of Surgery: NA Diagnosis: MENISCUS TEAR L KNEE (ALTHOUGH PER PA OFFICE NOTE, PATELLOFEMORAL PAIN, ARTHRITIS) Assessment: Pt IS 44 YO F REFERRED TO PT BY ORTHO (MUSA) WITH L KNEE PAIN. (PER SCRIPT AND Pt MENISCUS TEAR, PER PA OFFICE NOTES PFPS/ARTHRITIS). Pt HAS NOT HAD MRI. PRESENTS TO PT WITH GOOD KNEE ROM AND STRENGTH (PER MMT). SOME PATELLA LAT TILT AND PAIN ANT/MED (WHICH COULD BE MENISCUS OR PES ANSERINE BURSITIS). NEG MARK TEST FOR CREPITUS, NEG APLEY COMPRESSION. SHOULD BENEFIT FROM PT TO ADDRESS THESE ISSUES Frequency and Duration: The patient will be seen 2X/WK X 6 WKS Short Term Goals: 1. INCREASED AWARENESS KNEE CARE 2. SELF TAPING IF INDICATED Desktop Specialist Goals: 1. DECREASED L KNEE PAIN AT LEAST 50% WITH ADLS 2. I HEP WITH DC EX PLAN 3. IMPROVED LEFI (66/80 SOC) Treatment Plan: Modalities to reduce pain, spasms and effusion. Manual therapy to restore motion and function. Therapeutic exercise to improve strength and flexibility. Neuromuscular re-education for posture and balance. Therapeutic activities to return to functional activities of daily living. Electronically signed by: ANASTASIA HAILE PT Please sign and return to therapist. Thank you for your referral.
--- NOTE | 2025-02-28 11:57 | MHC.PT.DC ---
[facility] [place] Office [place] Office [place] Office [address] Ely Colon [address] [phone] F: [phone] F: [phone] F: [phone] F: [phone] Physical Therapy Discharge Report Diagnosis: MENISCUS TEAR L KNEE (ALTHOUGH PER PA OFFICE NOTE, PATELLOFEMORAL PAIN, ARTHRITIS) Date of Surgery: NA Date of Evaluation: 12/21/24 Date of Discharge: 02/28/25 Treatments to Date: 6 Cancellations to Date: No Shows to Date: Discharge Status: Improved Function Independent with HEP Patient Elected to Stop Recommend MD Follow-up Discharge Summary: LAST SEEN ON 01/25. PER ASSESMENT FROM THAT DAY :CHALLENGED WITH PROP WORK (REPORTS HX OF VERTIGO), NO SIGNIF C/O KNEE PAIN DURING SESSION TODAY. SHOULD BE READY FOR DC BACK TO HOME EXERCISE ROUTINE SOON: Pt THEN CANCELLED HER LAST SCHEDULED APPT WITHOUT FURTHER APPTS MADE. Electronically signed by: ANASTASIA HAILE PT Please sign and return to therapist. Thank you for your referral.
== END 2025-02-28 11:58 | disposition home or self-care (01) ==
LOC: HO.PT 10:00
PROVIDERS: PCP Internal Medicine; Visit Provider Physician Assistant
DX: M17.12 Unilateral primary osteoarthritis, left knee (principal)
CPT/HCPCS: 97110; 97161; 97530; 97535